=== PATIENT | male | born 1945 | race Caucasian/White ===

== ENCOUNTER 2020-03-11 13:21 | Outpatient (CLI) | payer MEDICARE, SELFPAY | END 2020-03-11 13:22 | disposition home or self-care (01) | LOC: CHSIMG 13:24 | PROVIDERS: PCP Internal Medicine; Visit Provider Specialist | DX: I05.9 Rheumatic mitral valve disease, unspecified (principal) | CPT/HCPCS: 93306 ==

== ENCOUNTER 2020-07-20 01:15 | Outpatient (CLI) | payer MEDICARE, SELFPAY ==
[2020-07-20 19:01] LABS: SARS-CoV-2 RNA PCR Negative
== END 2020-07-20 01:16 | disposition home or self-care (01) ==
LOC: ANHCOVIDDT 01:15
PROVIDERS: PCP Internal Medicine; Visit Provider Surgery
DX: Z01.812 Encounter for preprocedural laboratory examination (principal); Z20.828 Contact with and (suspected) exposure to other viral communicable diseases
CPT/HCPCS: 87635; C9803; U0003

== ENCOUNTER 2020-07-22 01:06 | Day surgery (SDC) | payer MEDICARE, SELFPAY ==
[2020-07-16 16:16] VITALS: BMI 30.9
[2020-07-22] MEDS: LACTATED RINGERS 1,000 ML 150 ML IV CONT (07:07)
[2020-07-22 07:11] VITALS: BP 134/53; PULSE 72; RESP 20; TEMP 36.5; O2SAT 98; BMI 30.3
--- NOTE | 2020-07-22 07:32 | WPDANESEPPF ---
Anes - Initial Pre Proc Eval Procedure: Operation Date: 07/22/20 08:00 Proposed Procedures p Colonoscopy - Kalyan Mason DO Date/Time: 07/22/20 07:32 Surgeon: Kalyan Mason DO Pre Op Diagnosis: Melena Patient Data Age: 74 Gender: M Height: 5 ft 10 in Weight: 95.8 kg Last Vital Signs Temp 97.7 F 07/22/20 07:11 Pulse 72 07/22/20 07:11 Resp 20 07/22/20 07:11 BP 134/53 L 07/22/20 07:11 Pulse Ox 98 07/22/20 07:11 Allergies Allergy/AdvReac Type Severity Reaction Status Date / Time No Known Allergies Allergy Verified 07/22/20 07:09 Home Medications Medication Instructions Recorded Confirmed Type albuterol sulfate [ProAir HFA] 2 puff INHALATION QID PRN 07/16/20 07/16/20 History atorvastatin 40 mg PO DAILY 07/16/20 07/16/20 History budesonide-formoterol [Symbicort] 2 puff INHALATION Q12H 07/16/20 07/16/20 History cetirizine [Zyrtec] 10 mg PO DAILY 07/16/20 07/16/20 History furosemide 20 mg PO DAILY 07/16/20 07/16/20 History ipratropium bromide 2 spray INTRANASAL BID 07/16/20 07/16/20 History rivaroxaban [Xarelto] 20 mg PO DAILY 07/16/20 07/16/20 History tamsulosin 0.4 mg PO HS 07/16/20 07/16/20 History tiotropium bromide [Spiriva with 1 cap INHALATION DAILY 07/16/20 07/16/20 History HandiHaler] Patient hx anesthesia problems: none Family hx anesthesia problems: none PMFSH Past Medical History Medical History (Updated 07/22/20 @ 07:32 by Emery Du MD) Atrial fibrillation COPD (chronic obstructive pulmonary disease) Hyperlipidemia CAILIN (obstructive sleep apnea) Pacemaker Family History Family History (Updated 04/28/16 @ 23:19 by DOCTOR UNKNOWN) Father Cerebrovascular accident Family history of diabetes mellitus in first degree relative Mother Cerebrovascular accident Family history of diabetes mellitus in first degree relative Sibling Family history of lung cancer Social History Social History Smoking packs per day: 1 Smoking cigarettes per day: 20.0 Years smoked: 30 Smoking pack-years: 30.00 Smoking status: Former smoker Tobacco type: cigarettes Smoking end date: 10/01/90 Alcohol intake: never Substance use: never Substance use type: does not use Living arrangements: with family Spiritual care concerns: No Anes - Eval Final PreProcedure Day of Procedure 07/22/20 07:32 Patient weight: obese Heart: irregular rhythm Lungs: clear to auscultation Airway: Mallampati scale class II Neurological: alert and oriented Last oral intake: >/= 8 hours ASA classification: III Emergent: no Anesthetic plan: proceed Anesthesia type and monitoring: general GIVS and standard monitoring Informed Consent: The patient's anesthetic plan and its attendant risks and benefits were discussed with the patient/family/POA. Questions were solicited and answers provided to the satisfaction of the patient/family/POA.
--- NOTE | 2020-07-22 07:56 | PM.IMHP ---
H&P: HPI History of Present Illness Date/Time: 07/22/20 07:56 Chief complaint: Melena Narrative: Ranjith Momin is a 74 year old male who presents with a positive fecal occult blood test. He denies any noticeable blood in his stool. His last colonoscopy was 4 years ago and polyps were removed at that time. He also has a previous finding of diverticulosis and internal hemorrhoids on colonoscopy. He has distant aunts and uncles that have had colon cancer but no first-degree relatives with a history of colon cancer. He denies any other changes in his bowels. Review of Systems Review of Systems: All systems reviewed & are unremarkable except as noted in HPI and below Constitutional: Constitutional: Denies chills, Denies fever(s), Denies headache(s) and Denies weight loss Eyes: Eyes: Denies change in vision ENT: Denies dizziness, Denies headache(s), Denies neck mass and Denies throat swelling Cardiovascular: Cardiovascular: Denies chest pain, Denies lightheadedness and Denies dyspnea Respiratory: Respiratory: Denies cough, Denies dyspnea and Denies wheezing Gastrointestinal: Gastrointestinal: Denies abdominal pain, Denies change in bowel habits, Denies nausea and Denies vomiting Genitourinary: Genitourinary: Denies hematuria and Denies dysuria Musculoskeletal: Musculoskeletal: Reports as per HPI Integumentary/Breasts: Skin/Breast: Reports as per HPI Neurologic: Denies dizziness and Denies headache(s) Allergic/Immunologic: Allergic/Immunologic: Denies throat swelling and Denies wheezing COUNT INCLUDES THE [facility] Past Medical History Medical History Atrial fibrillation COPD (chronic obstructive pulmonary disease) Hyperlipidemia CAILIN (obstructive sleep apnea) Pacemaker Family History Family History Father Cerebrovascular accident Family history of diabetes mellitus in first degree relative Mother Cerebrovascular accident Family history of diabetes mellitus in first degree relative Sibling Family history of lung cancer Social History Social History Smoking packs per day: 1 Smoking cigarettes per day: 20.0 Years smoked: 30 Smoking pack-years: 30.00 Smoking status: Former smoker Tobacco type: cigarettes Smoking end date: 10/01/90 Alcohol intake: never Substance use: never Substance use type: does not use Living arrangements: with family Spiritual care concerns: No Meds Home Medications and Allergies Home Medications Medication Instructions Recorded Confirmed Type albuterol sulfate [ProAir HFA] 2 puff INHALATION QID PRN 07/16/20 07/16/20 History atorvastatin 40 mg PO DAILY 07/16/20 07/16/20 History budesonide-formoterol [Symbicort] 2 puff INHALATION Q12H 07/16/20 07/16/20 History cetirizine [Zyrtec] 10 mg PO DAILY 07/16/20 07/16/20 History furosemide 20 mg PO DAILY 07/16/20 07/16/20 History ipratropium bromide 2 spray INTRANASAL BID 07/16/20 07/16/20 History rivaroxaban [Xarelto] 20 mg PO DAILY 07/16/20 07/16/20 History tamsulosin 0.4 mg PO HS 07/16/20 07/16/20 History tiotropium bromide [Spiriva with 1 cap INHALATION DAILY 07/16/20 07/16/20 History HandiHaler] Allergies Allergy/AdvReac Type Severity Reaction Status Date / Time No Known Allergies Allergy Verified 07/22/20 07:09 Vital Signs Vital Signs - 24 hr 07/22/20 07:11 Temperature 36.5 C Pulse Rate 72 Respiratory Rate 20 Blood Pressure 134/53 L Pulse Oximetry 98 Exam Const: General: no acute distress and alert Orientation/consciousness: patient oriented x3 HENMT: Head: normocephalic and atraumatic Ears: hearing grossly normal bilaterally General nose exam: Normal nares present Mouth: Yes Normal oral and palatal mucosa present Eyes: Periorbital: periorbital findings normal Sclera: sclerae normal EOM: EOMs intact bilaterally Neck: Neck: no
[2020-07-22 08:38] VITALS: BP 87/52; PULSE 70; RESP 12; O2SAT 97
[2020-07-22 08:48] VITALS: BP 100/62; PULSE 70; RESP 14; O2SAT 98
[2020-07-22 08:58] VITALS: BP 115/60; PULSE 70; RESP 16; O2SAT 99
[2020-07-22 09:08] VITALS: BP 121/65; PULSE 70; RESP 12; O2SAT 98
== END 2020-07-22 09:20 | disposition home or self-care (01) ==
PROVIDERS: PCP Internal Medicine; Visit Provider Surgery
PROC: 0DJD8ZZ Inspection of Lower Intestinal Tract, Via Natural or Artificial Opening Endoscopic (ICD-10-PCS; CPT 45378; principal; 2020-07-22 08:00)
DX: R19.5 Other fecal abnormalities (principal); Z86.010 Personal history of colon polyps; I48.20 Chronic atrial fibrillation, unspecified; J44.9 Chronic obstructive pulmonary disease, unspecified; E78.5 Hyperlipidemia, unspecified; G47.33 Obstructive sleep apnea (adult) (pediatric); Z95.0 Presence of cardiac pacemaker; Z87.891 Personal history of nicotine dependence; K57.30 Diverticulosis of large intestine without perforation or abscess without bleeding; K64.8 Other hemorrhoids; D12.2 Benign neoplasm of ascending colon; K62.1 Rectal polyp
CPT/HCPCS: 45384; 88305; J2370; J2704; J7120

== ENCOUNTER → 2020-12-23 08:52 | Outpatient (CLI) | payer MEDICARE, SELFPAY ==
--- NOTE | ~2020-12-23 | CT_ITS ---
EXAMINATION: CT sinus wo con DATE: 12/23/2020 09:27 INDICATION: Chronic sinusitis TECHNIQUE: Computed tomography (CT) of the paranasal sinuses was performed without intravenous contra st. The dose-length product was 266.74 mGy-cm. Automated exposure control and iterative reconstructio n technique were employed. COMPARISON: CT dated 05/22/2015 FINDINGS: There is chronic nasal fracture. Rightward nasal septal deviation. There is extensive mucos al thickening of the frontal, ethmoid, maxillary and sphenoid sinuses. There is mucoperiosteal reacti on of the maxillary sinuses. The ostiomeatal units are occluded by soft tissue. Mastoids are pneumati zed. IMPRESSION: 1. Pansinusitis. Reviewed, dictated and finalized at location A. IMPRESSION: 1. Pansinusitis.
== END ==
PROVIDERS: PCP Internal Medicine; Visit Provider Internal Medicine
DX: J32.4 Chronic pansinusitis (principal)
CPT/HCPCS: 70486

== ENCOUNTER → 2021-01-17 14:21 | Outpatient (CLI) | payer MEDICARE, SELFPAY ==
--- NOTE | ~2021-01-17 | CT_ITS ---
EXAMINATION: CT diagnostic chest wo con DATE: 01/17/2021 14:37 INDICATION: Emphysema. Pulmonary nodules. TECHNIQUE: Computed tomography (CT) of the chest was performed without intravenous contrast. The dose -length product was 244.60 mGy-cm. Automated exposure control and iterative reconstruction technique were employed. COMPARISON: CT dated 09/07/2017 FINDINGS: There is atherosclerosis of the aorta and coronary arteries. Cardiomegaly. No significant p leural or pericardial effusion. There are pacemaker leads present. Nonenlarged mediastinal lymph node s are likely reactive. Visualized aspects of the upper abdomen are unremarkable. There are a few smal l scattered bilateral pulmonary nodules measuring 4 mm or less, largest in the right middle lobe no f ocal airspace consolidation.. No endobronchial lesions. No pneumothorax. There is evidence of chronic granulomatous disease. No lytic or blastic lesions. Mild thoracic spondylosis. IMPRESSION: 1. Stable number and size of scattered pulmonary nodules measuring 4 mm or less, likely benign. Follo w-up low dose CT chest in 12 months recommended. Reviewed, dictated and finalized at location A. IMPRESSION: 1. Stable number and size of scattered pulmonary nodules measuring 4 mm or less , likely benign. Follow-up low dose CT chest in 12 months recommended.
== END ==
PROVIDERS: PCP Internal Medicine; Visit Provider Internal Medicine
DX: R91.1 Solitary pulmonary nodule (principal); J44.9 Chronic obstructive pulmonary disease, unspecified; M47.814 Spondylosis without myelopathy or radiculopathy, thoracic region
CPT/HCPCS: 71250

== ENCOUNTER 2021-06-03 10:37 | Outpatient (CLI) | payer MEDICARE, SELFPAY ==
--- NOTE | ~2021-06-03 | XR_ITS ---
EXAMINATION: XR chest 2V EXAM DATE: 06/03/2021 11:03 INDICATION: Cough and COPD. TECHNIQUE: Frontal and lateral projections of the chest obtained and reviewed. Comparison is made to prior examination from 01/02/2017. FINDINGS: There is a dual lead pacemaker/AICD seen with leads projecting over the expected locations of the right atrial appendage and right ventricle. The lungs are clear. There are no pleural effusi ons. The cardiomediastinal silhouette is within normal limits. There is no pneumothorax suspected. The bones and soft tissues are unremarkable. IMPRESSION: No acute cardiopulmonary findings. Reviewed, dictated and finalized at location B.
[2021-06-03 11:12] LABS: Hematocrit 47.7 % (37.0-46.0); Mean Corpuscular HGB Conc 33.5 g/dL (32.0-36.0); Mean Corpuscular Hemoglobin 30.5 pg (27.0-31.0); Mean Corpuscular Volume 90.9 fL (78.0-102.0); Mean Platelet Volume 9.2 fl (8.7-11.0); Platelet Count Result 289 K/mm3 (150-420); Red Blood Count 5.25 M/mm3 (4.70-6.10); White Blood Count 10.8 K/mm3 (4.8-10.8)
[2021-06-03 11:30] LABS: SARS-CoV-2 Ag Negative (Negative)
[2021-06-03 12:07] LABS: Band Neutrophils Percent 0 % (0-6); Basophils Percent Manual 1 % (0-1); Eosinophils Percent Manual 13 % (1-6); Lymphocytes Percent Manual 13 % (18-44); Monocytes Absolute Manual 0.97 K/mm3 (0.1-0.90); Monocytes Percent Manual 9 % (3-9); Neutrophils Absolute Manual 6.91 K/mm3 (1.3-6.7); Neutrophils Percent Manual 64 % (46-73); Total Cells Counted 100
[2021-06-03 12:08] LABS: Platelet Estimate Adequate (Adequate)
== END 2021-06-03 10:38 | disposition home or self-care (01) ==
LOC: CHSLAB 10:39
PROVIDERS: PCP Internal Medicine; Visit Provider Internal Medicine
DX: R05 Cough (principal); Z20.822 Contact with and (suspected) exposure to COVID-19
CPT/HCPCS: 36415; 71046; 85025; 85060; 87426; C9803

== ENCOUNTER 2022-06-13 15:59 | Outpatient (RCR) | payer MEDICARE, SELFPAY ==
--- NOTE | 2022-06-13 16:50 | PTOPEVAL1 ---
Assessment and note entered by Alessia Correa DPT Evaluation Information Assessment Status Evaluation Diagnosis L shoulder pain Onset 08-22-2021 Subjective Information Pt reports that on 08/22/2021, he was lifting a heavy deer onto his truck. He denies any popping, and reports pain began a few days later. Pain is at the front and lateral portion of the L shoulder . He reports pain gets worse when reaching, lifting objects. Denies N/T, denies weakness in arm. He reports that sleep has been mostly unaffected. Pt likes to garden, cut wood, and white . He reports that he is still able to do all of his tasks but might have to perform them more slowly/carefully. He denies injury to his L shoulder before all of this. Reported Pain Level Pain Score 0: Self Report Assessment PT Clinical Summary Pt presents to physical therapy with L shoulder pain, decreased strength, decreased ROM, and altered posture. He presents with signs and symptoms consistent with differential diagnosis of biceps tendon/labral pathology, impingement syndrome, or RTC pathology. His current deficits make it more challenging for him to lift and reach for objects as needed for gardening, hunting, and cutting wood. He was educated on potential pathophysiology and POC going forward and he was provided with an HEP to improve mobility, strength , and posture within his tolerance. He will benefit from skilled PT to improve the aforementioned impairments, facilitate symptom relief, and return to functional and recreational activities. Plan of Care Interventions Hot Pack/Cold Pack,Manual Therapy,Patient/ Caregiver Educati,Therapeutic Activities, Therapeutic Exercise PT Services Indicated Yes Treatment Frequency and 2x week for 10 visits Duration These treatments will address the objective and functional deficits as defined above. The patient will be advanced safely and appropriately in order for the patient to progress towards his/her prior level of function. Additional exercises will be introduced and as well as a comprehensive home exercise program upon discharge, if needed, ?to ensure carryover of functional gains achieved in the clinic. This treatment plan has been reviewed and agreement upon by the patient.
== END 2022-06-22 13:45 | disposition home or self-care (01) ==
LOC: CHSPT 15:59
PROVIDERS: PCP Internal Medicine; Visit Provider Internal Medicine
DX: M25.512 Pain in left shoulder (principal)
CPT/HCPCS: 97110; 97161

== ENCOUNTER 2022-09-03 15:24 | Emergency (ER) | payer MEDICARE, SELFPAY ==
[2022-09-03 15:26] VITALS: BP 159/93; PULSE 82; RESP 20; TEMP 37.3; O2SAT 97
[2022-09-03 16:20] LABS: Appearance Urine Clear (Clear); Bilirubin Urine Negative (Negative); Blood Urine 2+ (Negative); Glucose Urine UA Negative (Negative); Ketones Urine Negative (Negative); Leukocyte Esterase Ur Negative (Negative); Nitrate Urine Negative (Negative); Protein Urine Negative (Negative); Urobilinogen Urine 0.2 mg/dL (0.2-1.0); pH Urine 5.5 (5.0-8.0)
[2022-09-03 16:25] LABS: Add Urine Microscopic? YES; Color Urine Light Yellow (Yellow)
[2022-09-03 16:26] LABS: RBC Urine 21-50 /hpf (0-2)
--- NOTE | 2022-09-03 16:57 | ED.ABDPAIN ---
HPI - Abdominal Pain General Chief Complaint: Urogenital-Male Stated Complaint: cannot urinate Time Seen by Provider: 09/03/22 15:26 Source: patient, family and RN notes reviewed Mode of arrival: ambulatory Limitations: no limitations History of Present Illness MD elicited complaint: abdominal pain Pertinent past history: none Onset (ago): hour(s) (12) Pain Consistency: constant and other (no acute pain) Pain scale (0-10): 0 Exacerbating factors: nothing Relieving factors: nothing Associated symptoms: denies other symptoms Related Data Home Medications Medication Instructions Recorded Confirmed albuterol sulfate 90 mcg/actuation 2 puff inhalation QID PRN 07/16/20 03/14/21 aerosol inhaler (ProAir HFA) Shortness Of Breath Or Wheezing atorvastatin 40 mg tablet 40 mg PO DAILY 07/16/20 03/14/21 budesonide-formoterol HFA 160 2 puff inhalation Q12H 07/16/20 03/14/21 mcg-4.5 mcg/actuation aerosol inhaler (Symbicort) cetirizine 10 mg capsule (Zyrtec) 10 mg PO DAILY 07/16/20 03/14/21 ipratropium bromide 42 mcg (0.06 2 spray intranasal BID 07/16/20 03/14/21 %) nasal spray rivaroxaban 20 mg tablet (Xarelto) 20 mg PO DAILY 07/16/20 03/14/21 tamsulosin 0.4 mg capsule 0.4 mg PO QAM 07/16/20 03/14/21 tiotropium bromide 18 mcg capsule 1 cap inhalation BID 07/16/20 03/14/21 with inhalation device (Spiriva with HandiHaler) metoprolol tartrate 25 mg tablet 25 mg PO QPM 01/19/21 03/14/21 budesonide 0.25 mg/2 mL suspension 0.25 mg irrigation BID PRN Dyspnea 03/14/21 03/14/21 for nebulization furosemide 40 mg tablet 40 mg PO QAM 03/14/21 03/14/21 Allergies Allergy/AdvReac Type Severity Reaction Status Date / Time No Known Allergies Allergy Verified 03/14/21 10:42 Review of Systems Review of Systems: All systems reviewed & are unremarkable except as noted in HPI and below Constitutional: Constitutional: Reports no additional constitutional complaints Eyes: Eyes: Reports no additional eye complaints ENT: Reports system reviewed and no additional complaints, except as documented Cardiovascular: Cardiovascular: Reports no additional cardiovascular complaints Respiratory: Respiratory: Reports no additional respiratory complaints Gastrointestinal: Gastrointestinal: Reports no additional gastrointestinal complaints Genitourinary: Comments: unable to urinate. Musculoskeletal: Musculoskeletal: Reports no additional musculoskeletal complaints Integumentary/Breasts: Skin/Breast: Reports system reviewed and no additional complaints, except as docu Neurologic: Reports system reviewed and no additional complaints, except as documented Psychiatric: Psychiatric: Reports no additional psychiatric complaints Endocrine: Endocrine: Reports no additional endocrine complaints Hematologic/Lymphatic: Hematologic/Lymphatic: Reports no additional hematologic/lymphatic complaints Allergic/Immunologic: Allergic/Immunologic: Reports no additional allergic/immunologic complaints [facility] Past Medical History Medical History Atrial fibrillation COPD (chronic obstructive pulmonary disease) Hyperlipidemia CAILIN (obstructive sleep apnea) Pacemaker Urinary retention Family History Family History Father Cerebrovascular accident Family history of diabetes mellitus in first degree relative Mother Cerebrovascular accident Family history of diabetes mellitus in first degree relative Sibling Family history of lung cancer Social History Social History Smoking packs per day: 1 Smoking cigarettes per day: 20.0 Years smoked: 40 Smoking pack-years: 40.00 Smoking status: Former smoker Tobacco type: cigarettes Smoking end date: 03/31/05 Alcohol intake: former Alcohol use details: SOCIALLY IN PAST Substance use: never Substance use type: does not use
[2022-09-03 17:07] VITALS: BP 120/56; PULSE 61; RESP 20; TEMP 36.9; O2SAT 97
== END 2022-09-03 17:15 | disposition home or self-care (01) ==
PROVIDERS: Emergency Provider Emergency Medicine; PCP Internal Medicine
DX: R33.9 Retention of urine, unspecified (principal); Z87.891 Personal history of nicotine dependence; I48.91 Unspecified atrial fibrillation; E78.5 Hyperlipidemia, unspecified; J44.9 Chronic obstructive pulmonary disease, unspecified
CPT/HCPCS: 81001; 99283

== ENCOUNTER 2023-12-27 14:49 | Outpatient (CLI) | payer MEDICARE, SELFPAY ==
--- NOTE | ~2023-12-27 | XR_ITS ---
EXAMINATION: XR sacroiliac joints min 3V INDICATION: Bilateral hip and low back pain TECHNIQUE: AP and bilateral oblique views of the sacroiliac joints are obtained on four radiographs. COMPARISON: None available FINDINGS: Bone alignment is normal. There is no fracture. No abnormal sclerosis or erosion of the sac roiliac joints. There is severe lower lumbar spondylosis. There is mild osteoarthritis of the hips. IMPRESSION: 1. Unremarkable sacroiliac joints. Reviewed, dictated and finalized at location A.
--- NOTE | ~2023-12-27 | XR_ITS ---
EXAMINATION: XR lumbar spine 2-3V DATE: 12/27/2023 15:30 INDICATION: Low back pain TECHNIQUE: Anteroposterior and lateral views of the lumbar spine, and cone-down lateral view of the l umbosacral junction were obtained. COMPARISON: None. FINDINGS: There are 2 mm of anterolisthesis of L4 on L5. There is severe loss of intervertebral disc space height throughout the lumbar spine. The vertebral body heights are maintained. There is no frac ture. There is severe facet joint osteoarthritis at L4-5 and L5-S1. Calcified atherosclerosis is note d. Surgical clips in the right upper quadrant are likely from prior cholecystectomy. There are 13 deg molly of lumbar levoscoliosis. IMPRESSION: 1. Severe lumbar spondylosis without acute findings. Reviewed, dictated and finalized at location A.
--- NOTE | ~2023-12-27 | XR_ITS ---
XR hip BI wo pelvis 12/27/2023 15:30 Indication: Bilateral hip pain Procedure: 2 views each hip Comparison: 07/07/2019 Findings: There is mild osteoarthritis of the hips. No fracture or traumatic malalignment. There is o steitis pubis. Surrounding soft tissues are unremarkable. Impression: 1: Mild osteoarthritis of the hips. Reviewed, dictated and finalized at location L. Impression: 1: Mild osteoarthritis of the hips.
== END 2023-12-27 14:50 | disposition home or self-care (01) ==
LOC: CHSIMG 14:51
PROVIDERS: PCP Internal Medicine; Visit Provider Internal Medicine
DX: M54.50 Low back pain, unspecified (principal); M25.552 Pain in left hip; M25.551 Pain in right hip; M43.06 Spondylolysis, lumbar region; M18.0 Bilateral primary osteoarthritis of first carpometacarpal joints
CPT/HCPCS: 72100; 72202; 73521

== ENCOUNTER 2024-05-06 07:32 | Outpatient (CLI) | payer MEDICARE, SELFPAY ==
--- NOTE | ~2024-05-06 | CT_ITS ---
EXAMINATION: CTA brain carotid DATE: 05/06/2024 08:51 INDICATION: Cerebrovascular accident. Posterior neck pain. TECHNIQUE: Computed tomographic angiography (CTA) of the head was performed without and with 100 mL O mnipaque-350 intravenous contrast. CTA of the neck was performed with intravenous contrast. Automated exposure control and iterative reconstruction technique were employed. The dose-length product was 1 697.89 mGy-cm. Maximum intensity projection and volume rendered 3D-reconstructions were created by jose guadalupe katz technologist on a separate workstation. COMPARISON: Head CT 05/22/2015 FINDINGS: HEAD CTA: There is an old infarct in left temporal occipital region. There is an old infarct in right thalamus. There is no intracranial hemorrhage, acute infarction, or abnormal intracranial mass lesio n. The ventricles are normal in size. There is mucosal thickening in the paranasal sinuses with thick ening and sclerosis of the sinus [place], consistent with chronic sinusitis. There are old fracture def ormities of the nasal bones. The mastoid air cells are normal. The orbits are normal. Left vertebral artery is dominant. There is no significant stenosis of basilar artery or the posterior cerebral kristine mauricio. There is no significant stenosis of the intracranial internal carotid arteries or anterior or m iddle cerebral arteries. Left A1 anterior cerebral artery segment is absent, a normal variant. Anteri or communicating artery is normal. Posterior communicating arteries are not identified. There is no a neurysm. NECK CTA: Cardiomegaly is noted. There are coronary artery calcifications. No pericardial effusion. T here is mild mediastinal lymphadenopathy, likely reactive. There is no significant stenosis of the ve rtebral arteries. There is plaque in the proximal internal carotid arteries. There is 9% stenosis of the proximal right internal carotid artery relative to normal distal artery lumen diameter (NASCET cr iteria). There is 22% stenosis of the proximal left internal carotid artery relative to normal distal artery lumen diameter. There is severe cervical spondylosis. IMPRESSION: 1. 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 2. No aneurysm or significant intracranial arterial stenosis. 3. 9% stenosis of the proximal right internal carotid artery relative to normal distal artery lumen d iameter (NASCET criteria). 4. 22% stenosis of the proximal left internal carotid artery relative to normal distal artery lumen d iameter. 5. Chronic sinusitis. Reviewed, dictated and finalized at location A. IMPRESSION: 1. 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 2. No aneurysm or significant intracranial arterial stenosis. 3. 9% stenosis of the proximal right internal carotid artery relative to normal distal artery lumen diameter (NASCET criteria). 4. 22% stenosis of the proximal left internal carotid artery relative to normal distal artery lumen diameter. 5. Chronic sinusitis.
[2024-05-06 08:27] LABS: Estimated Glomerular Filt Rate 59
== END 2024-05-06 07:33 ==
LOC: MICIMG 07:33
PROVIDERS: PCP Internal Medicine; Visit Provider Internal Medicine
DX: I63.9 Cerebral infarction, unspecified (principal); J32.9 Chronic sinusitis, unspecified; I65.23 Occlusion and stenosis of bilateral carotid arteries
CPT/HCPCS: 70496; 70498; Q9967

== ENCOUNTER 2024-07-01 10:22 | Outpatient (CLI) | payer MEDICARE, SELFPAY ==
--- NOTE | ~2024-07-01 | US_ITS ---
EXAMINATION: US retroperitoneal comp DATE: 07/01/2024 10:46 INDICATION: Hematuria TECHNIQUE: Multiple ultrasound grayscale images of the kidneys were obtained. COMPARISON: None. FINDINGS: The right kidney measures 11.0 x 5.4 x 5.2 cm. The left kidney measures 10.6 x 5.7 x 5.2 cm. The kidn eys demonstrate normal echogenicity. There is no hydronephrosis in either kidney. No stones identifi ed. The bladder is normal. Prostatomegaly. IMPRESSION: 1. Normal kidneys without hydronephrosis. 2. Prostatomegaly. Reviewed, dictated and finalized at location A.
== END 2024-07-01 10:23 | disposition home or self-care (01) ==
LOC: MICIMG 10:23
PROVIDERS: PCP Internal Medicine; Visit Provider Internal Medicine
DX: R31.9 Hematuria, unspecified (principal); N40.0 Benign prostatic hyperplasia without lower urinary tract symptoms
CPT/HCPCS: 76770

== ENCOUNTER 2025-02-24 11:16 | Outpatient (CLI) | payer MEDICARE, SELFPAY ==
--- NOTE | ~2025-02-24 | XR_ITS ---
EXAMINATION: XR chest 2V DATE: 02/24/2025 11:40 INDICATION: Cough, COPD and congestive heart failure TECHNIQUE: PA and lateral views of the chest were obtained. COMPARISON: Chest radiograph dated 06/03/2021 FINDINGS: Hyperexpansion lungs with increased retrosternal clear space and flattening of the diaphragm consiste nt with provided history of COPD. Mild pulmonary vascular congestion with minimal increased interstit ial pattern at the bilateral lung bases consistent with minimal pulmonary edema with differential inc luding mild basilar atelectasis. No pleural effusion or pneumothorax. Mild cardiomegaly. Single lead cardiac pacemaker with lead tip near the apex of the right ventricle. There is a second disconnected right ventricular lead. Moderate thoracic and upper lumbar spondylosis. IMPRESSION: 1. Mild pulmonary vascular congestion and minimal congestive heart failure related basilar pulmonary edema versus atelectasis. 2. Hyperexpansion lungs consistent with provided history of COPD. 3. Cardiomegaly. Reviewed, dictated and finalized at location A. IMPRESSION: 1. Mild pulmonary vascular congestion and minimal congestive heart failure rela robi basilar pulmonary edema versus atelectasis. 2. Hyperexpansion lungs consistent with provided history of COPD. 3. Cardiomegaly.
--- OUTSIDE RECORDS SUMMARY | 2025-02-24 11:22 | XMS_ITS | CONTINUITY OF CARE DOCUMENT ---
Author Name tyson antoninowojciech Address Unknown Organization [facility] Address [address] [place] [address] Phone [phone] Care Team Providers Care Supply Chain Generalist Name Role Phone Lucrecia BAILEY, Chuy Unavailable KENTON FREEMAN MD Unavailable [phone] INSURANCE PROVID[employer] Payer name Policy type / Coverage type [place] [employer] PPO HMO [id number]
[2025-02-24 11:38] LABS: Hematocrit 48.1 % (37.0-46.0); Hemoglobin 15.8 g/dL (12.4-15.3); Mean Corpuscular HGB Conc 32.8 g/dL (32-36); Mean Corpuscular Hemoglobin 30.3 pg (27.0-31.0); Mean Corpuscular Volume 92.1 fL (78.0-102.0); Mean Platelet Volume 9.2 fl (8.7-11.0); Platelet Count Result 267 K/mm3 (150-420); Red Blood Count 5.22 M/mm3 (4.70-6.10); Red Cell Distribution Width 14.1 % (11.6-14.4); White Blood Count 8.1 K/mm3 (4.8-10.8)
[2025-02-24 12:15] LABS: Alanine Aminotransferase 21 U/L (6-50); Albumin Level 4.4 g/dL (3.5-5.1); Alkaline Phosphatase 100 U/L (38-126); Anion Gap 7 mmol/L (4-12); Aspartate Amino Transferase 36 U/L (17-59); Bilirubin,Total 1.9 mg/dL (0.2-1.3); Blood Urea Nitrogen 21 mg/dL (9-20); Calcium 9.7 mg/dL (8.4-10.2); Carbon Dioxide 31 mmol/L (22-30); Chloride 102 mmol/L (98-107); Estimated Glomerular Filt Rate > 60; Glucose 91 mg/dL (65-110); Osmolality Calculated 293 mOsm/kg (285-295); Potassium 3.9 mmol/L (3.4-5.0); Sodium 140 mmol/L (137-145); Total Protein 7.2 g/dL (6.3-8.2)
[2025-02-24 12:24] LABS: NT Pro B Type Natriuretic Pept 1200 pg/mL (19.9-100)
== END 2025-02-24 11:17 | disposition home or self-care (01) ==
PROVIDERS: PCP Internal Medicine; Visit Provider Internal Medicine
DX: R05.9 Cough, unspecified (principal); I50.9 Heart failure, unspecified; J44.9 Chronic obstructive pulmonary disease, unspecified; M79.89 Other specified soft tissue disorders; I51.7 Cardiomegaly; R91.8 Other nonspecific abnormal finding of lung field
CPT/HCPCS: 36415; 71046; 80053; 83880; 85027

== ENCOUNTER 2025-05-14 10:56 | Outpatient (CLI) | payer MEDICARE, SELFPAY ==
--- NOTE | ~2025-05-14 | XR_ITS ---
CHEST RADIOGRAPH, PA AND LATERAL CLINICAL HISTORY: Pleural Effusion, CHF . COMPARISON: 02/1704/19/2025 TECHNIQUE: PA and lateral views of the chest. FINDINGS The left mid lung is partially obscured due to pacemaker generator. Wires project over the right atrium and right ventricle. The remainder of the cardiomediastinal silhouette is otherwise unremarkable. Blunting of the left costophrenic sulcus suggesting a small left-sided pleural effusion, confirmed on lateral view. Increased interstitial markings are identified bilaterally, findings suggesting mild pulmonary vascul ar congestion. The remainder of the lungs are clear. IMPRESSION: Mild pulmonary vascular congestion with a small left-sided pleural effusion. Reviewed, dictated and finalized at location A.
--- OUTSIDE RECORDS SUMMARY | 2025-05-14 11:17 | XMS_ITS | Encounter Summary ---
Author Organization [facility] Address [facility] [place] [address] Care Team Providers Care Car Bracer Name Role Phone Feliz Mai MD Primary Care Provider [phone] Cornelius Guevara MD Unavailable [phone] Vaibhav Burgess MD Unavailable [phone] Krish Contreras MD Unavailable [phone] Radha Holliday ANP-BC Unavailable [phone] Chase Rubio MD Unavailable [phone] Raven Wallace PA-C Unavailable [phone] Encounter Details Date Type Department Care Team ([facility] Contact Info) Description 11/15/2017 Abstract [facility] [address] [place] [address] Abstract, Doc [facility] Social History Tobacco Use Types Packs/Day Years Used Date Smoking Tobacco: Former Smokeless Tobacco: Current Chew Alcohol Use Standard Drinks/Week Comments No 0 (1 standard drink = 0.6 oz pur e alcohol) Sex and Gender Information Value Date Recorded Sex Assigned at Male 12/01/2024 10:06 AM SALES AND OPERATIONS TRAINEE Legal Sex Male 1:26 AM CDT Gender Identity Not on file Sexual Orientation Not on file 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 ld [address] [place] [address] Chase Rubio MD [address] [place] [address] 01/06/2026 10:00 AM CDT Office Visit [facility] [place] [address] [address] Raven Wallace PA-C [address] [place] [address] 01/06/2026 10:00 AM CDT Allied Health/Nurse Visit [place] [address] [place] [address] Chase Rubio MD [address] [place] [address] documented as of this encounter Procedures Procedure Name Priority Date/Time Associated Diagnosis Comments AST/SGOT Routine 11/05/2017 terminal manager current use of amiodarone Atrial fibrillation, permanent THYROID STIM HORMONE TSH Routine 11/05/2017 residential current use of amiodarone Atrial fibrillation, permanent ALT/SGPT Routine 11/05/2017 residential current use of amiodarone Atrial fibrillation, permanent documented in this encounter Results * TSH (11/05/2017) Pathologist [facility] TSH 1.78 11/05/2017 Yordan Stallings MD LABORATORY Final Result * ALT/SGPT (11/05/2017) ALT 23 11/05/2017 us Yordan Stallings MD LABORATORY Final Result * AST/SGOT (11/05/2017) AST 23 11/05/2017 us Yordan Stallings MD LABORATORY Final Result documented in this encounter Visit Diagnoses Diagnosis terminal manager current use of amiodarone Atrial fibrillation, permanent (CMS/HCC HHS/HCC) Atrial fibrillation documented in this encounter Additional Health Concerns Infection Onset Date Last Indicated Resolved Time COVID-19 Rule Out 05/24/2020 05/24/2020 05/25/2020 10:00 PM CDT COVID-19 Rule Out 06/05/2020 06/05/2020 06/06/2020 9:06 PM CDT COVID-19 Rule Out 02/12/2021 02/12/2021 02/12/2021 7:10 PM CDT documented as of this encounter Care Teams Car Bracer Relationship Specialty Start Date End Date Feliz Mai MD [address] [place] [address] PCP - General INTERNAL MEDICINE 04/13/16 Cornelius Guevara MD [address] [place] [address] [place] Pit Shovel Operator CARDIOVASCULAR DISEASE 09/12/17 01/22/24 Vaibhav Burgess MD [address] [place] [address] EP Pit Shovel Operator CLINICAL CARDIAC ELECTROPHYSIOLOGY 11/14/19 01/22/24 Krish Contreras MD [address] [place] [address] INTERVENTIONAL CARDIOLOGY 01/23/2412/05 Radha Holliday ANP- [address] [place] [address] Nurse Practitioner NURSE PRACTITIONER ADULT HEALTH 01/23/24 Chase Rubio MD [address] [place] [address] Consulting Physician CLINICAL CARDIAC ELECTROPHYSIOLOGY 12/02/24 Raven Wallace PA-C [address] [place] [address] Referring Physician PHYSICIAN SPINNER HYDRAULIC 12/02/24 documented as of this encounter
--- OUTSIDE RECORDS SUMMARY | 2025-05-14 11:17 | XMS_ITS | Encounter Summary ---
Author Organization [facility] Address [address] [place] [address] Care Team Providers Care Head Buyer Tobacco Name Role Phone Feliz Mai MD Primary Care Provider [phone] Cornelius Guevara MD Unavailable [phone] Vaibhav Burgess MD Unavailable [phone] Krish Contreras MD Unavailable [phone] Radha Holliday ANP-BC Unavailable [phone] Chase Rubio MD Unavailable [phone] Raven Wallace PA-C Unavailable [phone] Encounter Details Date Type Department Care Team (Late st Contact Info) Description 08/08/2021 Abstract [facility] [address] [place] [address] Cornelius Guevara MD [address] [place] [address] [phone] Social History Tobacco Use Types Packs/Day Years Used Date Smoking Tobacco: Former Cigarettes Q uit: 04/13/1990 Smokeless Tobacco: Current Chew Alcohol Use Standard Drinks/Week Comments No 0 (1 standard drink = 0.6 oz pur e alcohol) Sex and Gender Information Value Date Recorded Sex Assigned at Male 12/01/2024 10:06 AM BORING MILL OPERATOR Legal Sex Male 1:26 AM CDT Gender Identity Not on file Sexual Orientation Not on file 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 Job End Date 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 Not on file Not on file No t on file Not on file Not on file Not on file Not on file documented as of this encounter Plan of Treatment Upcoming Encounters Date Type Department Care Team (Late st Contact Info) Description 08/06/2025 3:15 AM BORING MILL OPERATOR Allied Health/Nurse Visit [facility] [address] [place] [address] Chase Rubio MD [address] [place] [address] 01/06/2026 10:00 AM CDT Office Visit [facility] [address] [place] [address] Raven Wallace PA-C [address] [place], [place] [address] 01/06/2026 10:00 AM CDT Allied Health/Nurse Visit [facility] [place] [address] [place] [address] Chase Rubio MD [address] [place] [address] documented as of this encounter Procedures Procedure Name Priority Date/Time Associated Diagnosis Comments BASIC METABOLIC PANEL Routine 07/05/2021 documented in this encounter Results * (ABNORMAL) BASIC METABOLIC PANEL (07/05/2021) SODIUM S/P/B 140 135 - 146 POTASSIUM S/P/B 4.4 3.5 - 5.3 CO2 30 20 - 32 CHLORIDE S/P/B 105 98 - 110 GLUCOSE 85 65 - 99 mg/dL CALCIUM S/P/B 9.2 8.6 - 10.3 BUN 22 7 - 25 CREATININE S/P/B 1.34(A) 0.7 - 1.18 EGFR AFR. AMER. 60 <=90 EGFR NON-AFR. AMER. 52 <=90 07/05/2021 us Doc [facility] Abstract LABORATORY Final Result documented in this encounter Visit Diagnoses Not on filedocumented in this encounter Care Teams Head Buyer Tobacco Relationship Specialty Start Date End Date Feliz Mai MD [address] [place] [phone] PCP - General INTERNAL MEDICINE 04/13/16 Cornelius Guevara MD [address] [place], [place] [phone] Energy Production Or Plant Engineer CARDIOVASCULAR DISEASE 09/12/17 01/22/24 Vaibhav Burgess MD [address] [place], [place] [phone] EP Production Or Plant Engineer CLINICAL CARDIAC ELECTROPHYSIOLOGY 11/14/19 01/22/24 Krish Contreras MD [address] [place] [phone] INTERVENTIONAL CARDIOLOGY 01/23/2412/05 Radha Holliday, [facility]- [address] [place] [address] Nurse Practitioner NURSE PRACTITIONER ADULT HEALTH 01/23/24 Chase Rubio MD [address] [place], [place] [phone] Consulting Physician CLINICAL CARDIAC ELECTROPHYSIOLOGY 12/02/24 Raven Wallace PA-C [address] [place] [address] Referring Physician PHYSICIAN HANDHOLE MACHINE OPERATOR 12/02/24 documented as of this encounter
--- OUTSIDE RECORDS SUMMARY | 2025-05-14 11:17 | XMS_ITS | Encounter Summary ---
Author Organization [facility] Address [address] [place] [address] Care Team Providers Care Ring Sorter Name Role Phone Feliz Mai MD Primary Care Provider [phone] Cornelius Guevara MD Unavailable [phone] Vaibhav Burgess MD Unavailable [phone] Krish Contreras MD Unavailable [phone] Radha Holliday ANP-BC Unavailable [phone] Chase Rubio MD Unavailable [phone] Raven Wallace PA-C Unavailable [phone] Encounter Details Date Type Department Care Team (Late st Contact Info) Description 06/17/2021 Abstract [facility] [address] [place] [address] Cornelius Guevara MD [address] [place] [address] [phone] Social History Tobacco Use Types Packs/Day Years Used Date Smoking Tobacco: Former Cigarettes Q uit: 04/13/1990 Smokeless Tobacco: Current Chew Alcohol Use Standard Drinks/Week Comments No 0 (1 standard drink = 0.6 oz pur e alcohol) Sex and Gender Information Value Date Recorded Sex Assigned at Male 12/01/2024 10:06 AM POWER LINE INSTALLER AND REPAIRER Legal Sex Male 1:26 AM CDT Gender Identity Not on file Sexual Orientation Not on file 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 No / Unsure 05/27/2021 9:02 AM CDT documented as of this encounter Plan of Treatment Upcoming Encounters Date Type Department Care Team (Late st Contact Info) Description 08/06/2025 3:15 AM POWER LINE INSTALLER AND REPAIRER Allied Health/Nurse Visit [facility] [address] [place] [address] Chase Rubio MD [address] [place], [place] [address] 01/06/2026 10:00 AM CDT Office Visit [facility] [place] [address] [place] [address] Raven Wallace PA-C [address] [place], [place] [address] 01/06/2026 10:00 AM CDT Allied Health/Nurse Visit [facility] [place] [address] [place] [address] Chase Rubio MD [address] [place] [address] documented as of this encounter Procedures Procedure Name Priority Date/Time Associated Diagnosis Comments CMP (ABSTRACTED LAB) Routine 04/08/2021 TSH (OUTSIDE LAB) Routine 04/08/2021 CBC (OUTSIDE LAB) Routine 04/08/2021 LIPID PANEL Routine 04/08/2021 THYROXINE, FREE (FT4) Routine 04/08/2021 documented in this encounter Results * CBC (OUTSIDE LAB) (04/08/2021) [facility] WBC 9.5 3.8 - 10.8 HGB 16.6 13.2 - 17.1 HCT 49.8 38.5 - 50.0 PLT 316 140 - 400 RBC 5.53 4.20 - 5.80 04/08/2021 us Doc [facility] Abstract LAB-OUTSIDE/ABSTRACTED Final Result * THYROXINE, FREE (FT4) (04/08/2021) [facility] FREE T4 1.3 0.8 - 1.8 04/08/2021 us Doc [facility] Abstract LABORATORY Final Result * TSH (OUTSIDE LAB) (04/08/2021) [facility] TSH 3.64 0.40 - 4.50 04/08/2021 us Doc [facility] Abstract LAB-OUTSIDE/ABSTRACTED Final Result * (ABNORMAL) CMP (ABSTRACTED LAB) (04/08/2021) [facility] SODIUM S/P/B 141 135 - 146 POTASSIUM S/P/B 4.4 3.5 - 5.3 CHLORIDE S/P/B 100 98 - 110 CO2 28 20 - 32 BUN 26 7 - 25 CREATININE S/P/B 1.41(A) 0.7 - 1.18 EGFR AFR. AMER. 56 <=90 EGFR NON-AFR. AMER. 49 <=90 CALCIUM S/P/B 9.5 8.6 - 10.3 GLUCOSE 89 65 - 99 mg/dL TOTAL PROTEIN S/P/B 6.3 6.1 - 8.1 ALBUMIN S/P/B 4.0 3.6 - 5.1 AST 16 10 - 35 ALT 9 9 - 46 ALKALINE PHOSPHATASE S/P/B 109 35 - 144 BILIRUBIN TOTAL S/P/B 1.5 0.2 - 1.2 04/08/2021 us Doc [facility] Abstract LAB-OUTSIDE/ABSTRACTED Final Result * LIPID PANEL (04/08/2021) CHOLESTEROL 180 <200 HDL 44 >=40 TRIGLYCERIDES 87 <150 NON HDL CHOLESTEROL 136 <130 CHOL/HDL RATIO 4.1 <5.0 LDL (CALCULATED) 117 04/08/2021 us Doc [facility] Abstract LABORATORY Final Result documented in this encounter Visit Diagnoses Not on filedocumented in this encounter Care Teams Ring Sorter Relationship Specialty Start Date End Date Feliz Mai MD [address] [place] [address] PCP - General INTERNAL MEDICINE 04/13/16 Cornelius Guevara MD [address] [place] [address] [place] Well Head Pumper CARDIOVASCULAR DISEASE 09/12/17 01/22/24 Vaibhav Burgess MD [address] [place] [address] EP Well Head Pumper CLINICAL CARDIAC ELECTROPHYSIOLOGY 11/14/19 01/22/24 Krish Contreras MD [address] [place] [address] INTERVENTIONAL CARDIOLOGY 01/23/2412/05 Radha Holliday, [facility]- [address] [place] [address] Nurse Practitioner NURSE PRACTITIONER ADULT HEALTH 01/23/24 Chase Rubio MD [address] [place] [address] Consulting Physician CLINICAL CARDIAC ELECTROPHYSIOLOGY 12/02/24 Raven Wallace PA-C [address] [place] [address] Referring Physician PHYSICIAN PROTOTYPE ENGINEER 12/02/24 documented as of this encounter
--- OUTSIDE RECORDS SUMMARY | 2025-05-14 11:17 | XMS_ITS | Encounter Summary ---
Author Organization [facility] Address [address] [place] [address] Care Team Providers Care Directory Compiler Name Role Phone Feliz Mai MD Primary Care Provider [phone] Cornelius Guevara MD Unavailable [phone] Vaibhav Burgess MD Unavailable [phone] Krish Contreras MD Unavailable [phone] Radha Holliday ANP-BC Unavailable [phone] Chase Rubio MD Unavailable [phone] Raven Wallace PA-C Unavailable [phone] Encounter Details Date Type Department Care Team (Late st Contact Info) Description 11/24/2021 Abstract [facility] [address] [place] [address] Cornelius Guevara MD [address] [place] [address] [phone] Social History Tobacco Use Types Packs/Day Years Used Date Smoking Tobacco: Former Cigarettes Q uit: 04/13/1990 Smokeless Tobacco: Current Chew Alcohol Use Standard Drinks/Week Comments No 0 (1 standard drink = 0.6 oz pur e alcohol) Sex and Gender Information Value Date Recorded Sex Assigned at Male 12/01/2024 10:06 AM SENIOR APPLICATION SOFTWARE ENGINEER Legal Sex Male 1:26 AM CDT Gender Identity Not on file Sexual Orientation Not on file 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 Job End 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 Not on file Not on file No t on file Not on file Not on file Not on file Not on file documented as of this encounter Plan of Treatment Upcoming Encounters Date Type Department Care Team (Late st Contact Info) Description 08/06/2025 3:15 AM SENIOR APPLICATION SOFTWARE ENGINEER Allied Health/Nurse Visit [facility] [address] [place] [address] Chase Rubio MD [address] [place] [address] 01/06/2026 10:00 AM CDT Office Visit [facility] [address] [place] [address] Raven Wallace PA-C [address] [place], [place] [address] 01/06/2026 10:00 AM CDT Allied Health/Nurse Visit [facility] [place] [address] [place] [address] Chase Rubio MD [address] [place] [address] documented as of this encounter Procedures Procedure Name Priority Date/Time Associated Diagnosis Comments CMP (ABSTRACTED LAB) Routine 11/10/2021 LIPID PANEL Routine 11/10/2021 documented in this encounter Results * (ABNORMAL) CMP (ABSTRACTED LAB) (11/10/2021) SODIUM S/P/B 139 135 - 146 POTASSIUM S/P/B 4.4 3.5 - 5.3 CHLORIDE S/P/B 100 98 - 110 CO2 30 20 - 32 BUN 21 7 - 25 CREATININE S/P/B 1.25(A) 0.7 - 1.18 EGFR AFR. AMER. 65 <=90 EGFR NON-AFR. AMER. 56 <=90 CALCIUM S/P/B 10.0 8.6 - 10.3 GLUCOSE 89 65 - 99 mg/dL TOTAL PROTEIN S/P/B 6.6 6.1 - 8.1 ALBUMIN S/P/B 4.3 3.6 - 5.1 AST 23 10 - 35 ALT 16 9 - 46 ALKALINE PHOSPHATASE S/P/B 97 35 - 144 BILIRUBIN TOTAL S/P/B 1.8 0.2 - 1.2 11/10/2021 us Doc [facility] Abstract LAB-OUTSIDE/ABSTRACTED Final Result * LIPID PANEL (11/10/2021) CHOLESTEROL 126 <200 HDL 52 >=40 TRIGLYCERIDES 74 <150 NON HDL CHOLESTEROL 74 <130 CHOL/HDL RATIO 2.4 <5.0 LDL (CALCULATED) 59 <100 11/10/2021 us Doc [facility] Abstract LABORATORY Final Result documented in this encounter Visit Diagnoses Not on filedocumented in this encounter Care Teams Directory Compiler Relationship Specialty Start Date End Date Feliz Mai MD [address] [place] [address] PCP - General INTERNAL MEDICINE 04/13/16 Cornelius Guevara MD [address] [place] [address] [place] Hydro Generation Supervisor CARDIOVASCULAR DISEASE 09/12/17 01/22/24 Vaibhav Burgess MD [address] [place] [address] EP Hydro Generation Supervisor CLINICAL CARDIAC ELECTROPHYSIOLOGY 11/14/19 01/22/24 Krish Contreras MD [address] [place] [address] INTERVENTIONAL CARDIOLOGY 01/23/2412/05 Radha Holliday, [facility] [address] [place] [address] Nurse Practitioner NURSE PRACTITIONER ADULT HEALTH 01/23/24 Chase Rubio MD [address] [place] [address] Consulting Physician CLINICAL CARDIAC ELECTROPHYSIOLOGY 12/02/24 Raven Wallace PA-C [address] [place], [place] [address] Referring Physician PHYSICIAN ADVERTISING STRATEGIST 12/02/24 documented as of this encounter
--- OUTSIDE RECORDS SUMMARY | 2025-05-14 11:17 | XMS_ITS | Encounter Summary ---
Author Organization [facility] Address [address] [place] [address] Care Team Providers Care Java Xml Developer Name Role Phone Feliz Mai MD Primary Care Provider [phone] Cornelius Guevara MD Unavailable [phone] Vaibhav Burgess MD Unavailable [phone] Krish Contreras MD Unavailable [phone] Radha Holliday ANP-BC Unavailable [phone] Chase Rubio MD Unavailable [phone] Raven Wallace PA-C Unavailable [phone] Encounter Details Date Type Department Care Team (Late st Contact Info) Description 04/06/2020 Abstract [facility] [address] [place] [address] Cornelius Guevara MD [address] [place] [address] [phone] Social History Tobacco Use Types Packs/Day Years Used Date Smoking Tobacco: Former Smokeless Tobacco: Current Chew Alcohol Use Standard Drinks/Week Comments No 0 (1 standard drink = 0.6 oz pur e alcohol) Sex and Gender Information Value Date Recorded Sex Assigned at Male 12/01/2024 10:06 AM ARTILLERY SPECIALIST Legal Sex Male 1:26 AM CDT Gender Identity Not on file Sexual Orientation Not on file 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 Not on file Not on file No t on file Not on file Not on file Not on file Not on file documented as of this encounter Plan of Treatment Upcoming Encounters Date Type Department Care Team (Late st Contact Info) Description 08/06/2025 3:15 AM ARTILLERY SPECIALIST Allied Health/Nurse Visit [facility] [address] [place] [address] Chase Rubio MD [address] [place] [address] 01/06/2026 10:00 AM CDT Office Visit [facility] [place] [address] [place] [address] Raven Wallace PA-C [address] [place], [place] [address] 01/06/2026 10:00 AM CDT Allied Health/Nurse Visit [facility] [place] [address] [place] [address] Chase Rubio MD [address] [place], [place] [address] documented as of this encounter Visit Diagnoses Not on filedocumented in this encounter Additional Health Concerns Infection Onset Date Last Indicated Resolved Time COVID-19 Rule Out 05/24/2020 05/24/2020 05/25/2020 10:00 PM CDT COVID-19 Rule Out 06/05/2020 06/05/2020 06/06/2020 9:06 PM CDT COVID-19 Rule Out 02/12/2021 02/12/2021 02/12/2021 7:10 PM CDT documented as of this encounter Care Teams Java Xml Developer Relationship Specialty Start Date End Date Feliz Mai MD [address] [place] [address] PCP - General INTERNAL MEDICINE 04/13/16 Cornelius Guevara MD [address] [place] [address] [place] Negative Cutter CARDIOVASCULAR DISEASE 09/12/17 01/22/24 Vaibhav Burgess MD [address] [place] [address] EP Negative Cutter CLINICAL CARDIAC ELECTROPHYSIOLOGY 11/14/19 01/22/24 Krish Contreras MD [address] [place] [address] INTERVENTIONAL CARDIOLOGY 01/23/2412/05 Radha Holliday, [facility] [address] [place] [address] Nurse Practitioner NURSE PRACTITIONER ADULT HEALTH 01/23/24 Chase Rubio MD [address] [place] [address] Consulting Physician CLINICAL CARDIAC ELECTROPHYSIOLOGY 12/02/24 Raven Wallace PA-C [address] [place] [phone] Referring Physician PHYSICIAN NAIL ASSEMBLY MACHINE OPERATOR 12/02/24 documented as of this encounter
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
--- OUTSIDE RECORDS SUMMARY | 2025-05-14 11:17 | XMS_ITS | Encounter Summary ---
Author Organization [facility] Address [address] [place] [address] Care Team Providers Care Delivery Agent Name Role Phone Feliz Mai MD Primary Care Provider [phone] Cornelius Guevara MD Unavailable [phone] Vaibhav Burgess MD Unavailable [phone] Krish Contreras MD Unavailable [phone] Radha Holliday ANP-BC Unavailable [phone] Chase Rubio MD Unavailable [phone] Raven Wallace PA-C Unavailable [phone] Encounter Details Date Type Department Care Team (Late st Contact Info) Description 08/03/2021 Abstract [facility] [address] [place] [address] Cornelius Guevara MD [address] [place] [address] [phone] Social History Tobacco Use Types Packs/Day Years Used Date Smoking Tobacco: Former Cigarettes Q uit: 04/13/1990 Smokeless Tobacco: Current Chew Alcohol Use Standard Drinks/Week Comments No 0 (1 standard drink = 0.6 oz pur e alcohol) Sex and Gender Information Value Date Recorded Sex Assigned at Male 12/01/2024 10:06 AM MANAGER VIDEO Legal Sex Male 1:26 AM CDT Gender Identity Not on file Sexual Orientation Not on file 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 Job End Date 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 Not on file Not on file No t on file Not on file Not on file Not on file Not on file documented as of this encounter Plan of Treatment Upcoming Encounters Date Type Department Care Team (Late st Contact Info) Description 08/06/2025 3:15 AM MANAGER VIDEO Allied Health/Nurse Visit [facility] [address] [place] [address] Chase Rubio MD [address] [place] [address] 01/06/2026 10:00 AM CDT Office Visit [facility] [place] [address] [place] [address] Raven Wallace PA-C [address] [place], [place] [address] 01/06/2026 10:00 AM CDT Allied Health/Nurse Visit [facility] [place] [address] [place] [address] Chase Rubio MD [address] [place] [address] documented as of this encounter Procedures Procedure Name Priority Date/Time Associated Diagnosis Comments CMP (ABSTRACTED LAB) Routine 08/01/2021 LIPID PANEL Routine 08/01/2021 documented in this encounter Results * CMP (ABSTRACTED LAB) (08/01/2021) SODIUM S/P/B 140 POTASSIUM S/P/B 4.5 CHLORIDE S/P/B 100 CO2 31 BUN 23 CREATININE S/P/B 1.28 0.7 - 1.3 EGFR AFR. AMER. 63 <=90 EGFR NON-AFR. AMER. 54 <=90 CALCIUM S/P/B 9.9 GLUCOSE 96 mg/dL TOTAL PROTEIN S/P/B 6.5 ALBUMIN S/P/B 4.2 3.5 - 5.0 AST 17 ALT 14 ALKALINE PHOSPHATASE S/P/B 113 BILIRUBIN TOTAL S/P/B 1.6 08/01/2021 us Feliz Mai MD LAB-OUTSIDE/ABSTRACTED Final Result * LIPID PANEL (08/01/2021) CHOLESTEROL 212 <200 HDL 56 >=40 TRIGLYCERIDES 101 <150 NON HDL CHOLESTEROL 156 <130 CHOL/HDL RATIO 3.8 <5.0 LDL (CALCULATED) 136 08/01/2021 us Feliz Mai MD LABORATORY Final Result documented in this encounter Visit Diagnoses Not on filedocumented in this encounter Care Teams Delivery Agent Relationship Specialty Start Date End Date Feliz Mai MD [address] [place] [address] PCP - General INTERNAL MEDICINE 04/13/16 Cornelius Guevara MD [address] [place] [address] [place] Manager Billing CARDIOVASCULAR DISEASE 09/12/17 01/22/24 Vaibhav Burgess MD [address] [place] [address] EP Manager Billing CLINICAL CARDIAC ELECTROPHYSIOLOGY 11/14/19 01/22/24 Krish Contreras MD [address] [place] [address] INTERVENTIONAL CARDIOLOGY 01/23/2412/05 Radha Holliday, [facility]- [address] [place] [address] Nurse Practitioner NURSE PRACTITIONER ADULT HEALTH 01/23/24 Chase Rubio MD [address] [place] [address] Consulting Physician CLINICAL CARDIAC ELECTROPHYSIOLOGY 12/02/24 Raven Wallace PA-C [address] [place] [address] Referring Physician PHYSICIAN CHIEF COUNSEL 12/02/24 documented as of this encounter
== END 2025-05-14 10:57 | disposition home or self-care (01) ==
PROVIDERS: PCP Internal Medicine; Visit Provider Internal Medicine
DX: I50.9 Heart failure, unspecified (principal); J90 Pleural effusion, not elsewhere classified
CPT/HCPCS: 71046

== ENCOUNTER 2025-05-18 18:07 | Emergency (ER) | payer MEDICARE, SELFPAY ==
--- NOTE | ~2025-05-18 | XR_ITS ---
XR chest 2V 05/18/2025 18:56 Indication: Cough and fever Procedure: 2 views chest Comparison: 05/14/2025 Findings: Cardiomegaly. There is atherosclerosis and ectasia of the aorta. Pacemaker leads are stable . No focal air space disease, pulmonary edema, pleural effusion or suspected pneumothorax. Impression: 1: No acute cardiopulmonary disease. Reviewed, dictated and finalized at location A. Impression: 1: No acute cardiopulmonary disease.
--- OUTSIDE RECORDS SUMMARY | 2025-05-18 18:10 | XMS_ITS | Clinical Summary ---
Author Organization [facility] Address [address] [place] [address] Care Team Providers Care Partner Cco Name Role Phone Kenton Freeman MD Primary Care Provider [phone] Radha Holliday ANP-BC Unavailable [phone] Chase Rubio [...] Sleep apnea 09/15/2017 Mitral valve disease 09/15/2017 lubricating specialist current use of anticoagulant 7 SVT (supraventricular tachycardia) ([facility]) Cardiac pacemaker in situ 04/13/2016 CVA (cerebral vascular accident) ([facility]) 04/13/2016 Ventricular tachycardia ([facility]) 2015 Atrial fibrillation, permanent ([facility]) 04/13/2016 COPD (chronic obstructive pu lmonary disease) ([facility]) Resolved Problems Problem Noted Date Diagnosed Date Resolved Date detention current use of amiodarone 10/23/2016 08/14/2024 Encounters Date Type Department Care Team Description 05/01/2025 2:10 PM CDT - 05/01/2025 11:59 PM CDT Hospital Encounter [facility] [address] [place] [address] Kenton Freeman MD Discharge Disposition: Home or Self Care (Routine Discharge) 05/01/2025 Travel 04/28/2025 1:15 AM CDT Allied Health/Nurse Visit [facility] [address] [place] [address] Chase Rubio MD 04/09/2025 3:01 AM CDT - 04/09/2025 4:37 AM CDT Emergency [facility] [address] [facility] [place] [address] Broderick Torres MD Fall; Laceration Discharge Disposition: Home or Self Care (Routine Discharge) 04/09/2025 Travel 04/07/2025 11:55 AM CDT - 04/07/2025 11:59 PM CDT Hospital Encounter [facility] [address] 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 Not on file Not on file [...] st Contact Info) Description 08/06/2025 3:15 AM DUCK FARMER Allied Health/Nurse Visit [facility] [address] [place] [address] Chase Rubio MD [address] [place], [place] [address] 01/06/2026 10:00 AM CDT Office Visit [facility] [address] [place] [address] Raven Wallace PA-C [address] [place], [place] 7[address] [phone] 01/06/2026 10:00 AM CDT Allied Health/Nurse Visit [place] [address] [place] [address] Chase Rubio MD [address] [place], [place] 4[address] [phone] Health Maintenance Due Date Last Done Comments [...] this topic Medical Devices Implanted Type Area Breastfeeding Peer Counselor Device Identifier Shelf Expiration Date Model / Serial / Lot Medtronic Rv-Lead-09/15 Implanted:Qty : 1 on 09/15/2015 by Vaibhav Burgess MD Lead Implant [employer] CARDIAC RHYTHM AND HEART FAILURE - DIV M [id number] / [id number] / Medtronic Susie Mri Sr-02/15/2021 Implanted:Qty : 1 on 02/15/2021 by Vaibhav Burgess MD Pacemaker Left: Chest Wall [employer] CARDIAC RHYTHM AND HEART FAILURE - DIV M 06/28/2022 [id number] / [id number] / Explanted Type Area Breastfeeding Peer Counselor Device Identifier Shelf Expiration Date Model / Serial / Lot Medtronic Accolade [id number]-[id number] -09/15/2015 Implanted:Qty: 1 on 09/15/2015 by Vaibhav Burgess MD Explanted:Qty: 1 on 02/15/2021 by Vaibhav Burgess MD Pacemaker [employer] CARDIAC RHYTHM AND HEART FAILURE - DIV M [id number] / [id number] / Procedures Procedure Name Priority Date/Time Associated [...] 1:58 PM Narrative 05/03/2025 2:00 PM CDT [address] [place] [address] Examination: Right ribs. Exam time: 1418 hours. [...] Procedure Note Nick Hoskins MD - 05/03/[address] [place] [address] Examination: Right ribs. Exam time: 1418 hours. [...] 2:56 PM Narrative 05/01/2025 4:08 PM CDT [address] [place] [address] [place] [address] Examination: Chest x-ray 2 view Exam time: [...] Procedure Note Ranulfo Robertson DO - 05/01/[address] [place] [address] [place] [address] Examination: Chest x-ray 2 view Exam time: [...] 2:01 PM Narrative 05/03/2025 2:04 PM CDT [address] [place] [address] Examination: Cervical spine. Exam time: 1415 hours. [...] Procedure Note Nick Hoskins MD - 05/03/[address] [place] [address] Examination: Cervical spine. Exam time: 1415 hours. [...] 4:06 AM Narrative 04/09/2025 4:09 AM CDT [address] [place] [address] EXAMINATION: CT THORACIC SPINE WITHOUT CONTRAST INDICATION: [...] Probable cardiomegaly. Small hiatal hernia. Procedure Note Narinder Marrero MD - 04/09/[address] [place] [address] EXAMINATION: CT THORACIC SPINE WITHOUT CONTRAST INDICATION: [...] 3:53 AM Narrative 04/09/2025 3:55 AM CDT [address] [place] [address] EXAMINATION: CT HEAD WITHOUT CONTRAST INDICATION: Trauma. [...] Procedure Note Narinder Marrero MD - 04/09/2025 [place] [address] [facility] [place] [address] EXAMINATION: CT HEAD WITHOUT CONTRAST INDICATION: Trauma. [...] cells and maxillary sinuses. The calvariumis intact. [place] can be seen along the posterior right [...] 4:04 AM Narrative 04/09/2025 4:05 AM CDT [address] [place] [address] EXAMINATION: CT CERVICAL SPINE WITHOUT CONTRAST INDICATION: [...] Procedure Note Narinder Marrero MD - 04/09/[address] [place] [address] EXAMINATION: CT CERVICAL SPINE WITHOUT CONTRAST INDICATION: [...] Payer ID:[id number] (NAIC) Type:Not on file Address: [place] [id number] [employer] Advance Directives Documents on File Type Date Recorded Patient Associate Teacher Expl anation Advance Directives and Living Will 10/03/2017 SHORT FORM POWER OF RUBBER BELT SPLICER Advance Directives and Living Will 10/03/2017 SHORT FORM POWER OF RUBBER BELT SPLICER Advance Directives and Living Will 04/13/2016 SHORT FORM POWER OF RUBBER BELT SPLICER Advance Directives and Living Will 04/13/2016 SHORT FORM POWER OF RUBBER BELT SPLICER Advance Directives and Living Will 09/15/2015 SHORT FORM POWER OF RUBBER BELT SPLICER Advance Directives and Living Will 09/15/2015 SHORT FORM POWER OF RUBBER BELT SPLICER Advance Directives and Living Will 05/22/2015 SHORT FORM POWER OF RUBBER BELT SPLICER Advance Directives and Living Will 05/22/2015 SHORT FORM POWER OF RUBBER BELT SPLICER Care Teams Partner Cco Relationship Specialty Start Date End Date Kenton Freeman MD [address] [place] [address] PCP - General INTERNAL MEDICINE 04/13/16 Radha Holliday ANP- [address] [place] [address] Nurse Practitioner NURSE PRACTITIONER ADULT HEALTH 01/23/24 Chase Rubio MD [address] [place] [address] Consulting Physician CLINICAL CARDIAC ELECTROPHYSIOLOGY 12/02/24 Raven Wallace PA-C [address] [place] [address] [phone] Referring Physician PHYSICIAN DRAINAGE INSPECTOR 12/02/24
--- OUTSIDE RECORDS SUMMARY | 2025-05-18 18:10 | XMS_ITS | Encounter Summary ---
Author Organization [facility] Address [address] [place] [address] Care Team Providers Care Steeple Jack Name Role Phone Feliz Mai MD Primary Care Provider [phone] Cornelius Guevara MD Unavailable [phone] Vaibhav Burgess MD Unavailable [phone] Krish Contreras MD Unavailable [phone] Radha Holliday ANP-BC Unavailable [phone] Chase Rubio MD Unavailable [phone] Raven Wallace PA-C Unavailable [phone] Encounter Details Date Type Department Care Team (Late st Contact Info) Description 08/08/2021 Abstract [facility] [address] [place] [address] Cornelius Guevara MD [address] [place] [address] [phone] Social History Tobacco Use Types Packs/Day Years Used Date Smoking Tobacco: Former Cigarettes Q uit: 04/13/1990 Smokeless Tobacco: Current Chew Alcohol Use Standard Drinks/Week Comments No 0 (1 standard drink = 0.6 oz pur e alcohol) Sex and Gender Information Value Date Recorded Sex Assigned at Male 12/01/2024 10:06 AM JOINT CUTTER Legal Sex Male 1:26 AM CDT Gender Identity Not on file Sexual Orientation Not on file 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 Job End Date 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 Not on file No t on file Not on file Not on file Not on file Not on file documented as of this encounter Plan of Treatment Upcoming Encounters Date Type Department Care Team (Late st Contact Info) Description 08/06/2025 3:15 AM JOINT CUTTER Allied Health/Nurse Visit [facility] [address] [place] [address] Chase Rubio MD [address] [place] [address] 01/06/2026 10:00 AM CDT Office Visit [facility] [address] [place] [address] Raven Wallace PA-C [address] [place], [place] [address] 01/06/2026 10:00 AM CDT Allied Health/Nurse Visit [facility] [place] [address] [place] [address] Chase Rubio MD [address] [place] [address] documented as of this encounter Procedures Procedure [...] on filedocumented in this encounter Care Teams Steeple Jack Relationship Specialty Start Date End Date Feliz Mai MD [address] [place] [address] PCP - General INTERNAL MEDICINE 04/13/16 Cornelius Guevara MD [address] [place], [place] [address] [place] Marketing Mgr CARDIOVASCULAR DISEASE 09/12/17 01/22/24 Vaibhav Burgess MD [address] [place], [place] [address] EP Marketing Mgr CLINICAL CARDIAC ELECTROPHYSIOLOGY 11/14/19 01/22/24 Krish Contreras MD [address] [place] [phone] INTERVENTIONAL CARDIOLOGY 01/23/2412/05 Radha Holliday, [facility]- [address] [place] [address] Nurse Practitioner NURSE PRACTITIONER ADULT HEALTH 01/23/24 Chase Rubio MD [address] [place], [place] [phone] Consulting Physician CLINICAL CARDIAC ELECTROPHYSIOLOGY 12/02/24 Raven Wallace PA-C [address] [place] [address] Referring Physician PHYSICIAN SEAFOOD TECHNOLOGY SPECIALIST 12/02/24 documented as of this encounter
--- OUTSIDE RECORDS SUMMARY | 2025-05-18 18:10 | XMS_ITS | Encounter Summary ---
Author Organization [facility] Address [address] [place] [address] Care Team Providers Care Auditor Medical Claims Name Role Phone Feliz Mai MD Primary Care Provider [phone] Cornelius Guevara MD Unavailable [phone] Vaibhav Burgess MD Unavailable [phone] Krish Contreras MD Unavailable [phone] Radha Holliday ANP-BC Unavailable [phone] Chase Rubio MD Unavailable [phone] Raven Wallace PA-C Unavailable [phone] Encounter Details Date Type Department Care Team (Late st Contact Info) Description 04/06/2020 Abstract [facility] [address] [place] [address] Cornelius Guevara MD [address] [place] [address] [phone] Social History Tobacco Use Types Packs/Day Years Used Date Smoking Tobacco: Former Smokeless Tobacco: Current Chew Alcohol Use Standard Drinks/Week Comments No 0 (1 standard drink = 0.6 oz pur e alcohol) Sex and Gender Information Value Date Recorded Sex Assigned at Male 12/01/2024 10:06 AM PC NETWORK TECHNICIAN Legal Sex Male 1:26 AM CDT Gender Identity Not on file Sexual Orientation Not on file 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 Not on file Not on file No t on file Not on file Not on file Not on file Not on file documented as of this encounter Plan of Treatment Upcoming Encounters Date Type Department Care Team (Late st Contact Info) Description 08/06/2025 3:15 AM PC NETWORK TECHNICIAN Allied Health/Nurse Visit [facility] [address] [place] [address] Chase Rubio MD [address] [place] [address] 01/06/2026 10:00 AM CDT Office Visit [facility] [place] [address] [place] [address] Raven Wallace PA-C [address] [place], [place] [address] 01/06/2026 10:00 AM CDT Allied Health/Nurse Visit [facility] [place] [address] [place] [address] Chase Rubio MD [address] [place], [place] [address] documented as of this encounter Visit Diagnoses Not on filedocumented in this encounter Additional Health Concerns Infection Onset Date Last Indicated Resolved Time COVID-19 Rule Out 05/24/2020 05/24/2020 05/25/2020 10:00 PM CDT COVID-19 Rule Out 06/05/2020 06/05/2020 06/06/2020 9:06 PM CDT COVID-19 Rule Out 02/12/2021 02/12/2021 02/12/2021 7:10 PM CDT documented as of this encounter Care Teams Auditor Medical Claims Relationship Specialty Start Date End Date Feliz Mai MD [address] [place] [address] PCP - General INTERNAL MEDICINE 04/13/16 Cornelius Guevara MD [address] [place] [address] [place] Fur Comber CARDIOVASCULAR DISEASE 09/12/17 01/22/24 Vaibhav Burgess MD [address] [place] [address] EP Fur Comber CLINICAL CARDIAC ELECTROPHYSIOLOGY 11/14/19 01/22/24 Krish Contreras MD [address] [place] [address] INTERVENTIONAL CARDIOLOGY 01/23/2412/05 Radha Holliday, [facility]- [address] [place] [address] Nurse Practitioner NURSE PRACTITIONER ADULT HEALTH 01/23/24 Chase Rubio MD [address] [place] [address] Consulting Physician CLINICAL CARDIAC ELECTROPHYSIOLOGY 12/02/24 Raven Wallace PA-C [address] [place] [address] 619701 Referring Physician PHYSICIAN HEMMING AND TACKING MACHINE OPERATOR 12/02/24 documented as of this encounter
--- OUTSIDE RECORDS SUMMARY | 2025-05-18 18:10 | XMS_ITS | Encounter Summary ---
Author Organization [facility] Address [address] [place] [address] Care Team Providers Care Pipe Testing Technician Name Role Phone Feliz Mai MD Primary Care Provider [phone] Cornelius Guevara MD Unavailable [phone] Vaibhav Burgess MD Unavailable [phone] Krish Contreras MD Unavailable [phone] Radha Holliday ANP-BC Unavailable [phone] Chase Rubio MD Unavailable [phone] Raven Wallace PA-C Unavailable [phone] Encounter Details Date Type Department Care Team (Late st Contact Info) Description 06/17/2021 Abstract [facility] [address] [place] [address] Cornelius Guevara MD [address] [place] [address] [phone] Social History Tobacco Use Types Packs/Day Years Used Date Smoking Tobacco: Former Cigarettes Q uit: 04/13/1990 Smokeless Tobacco: Current Chew Alcohol Use Standard Drinks/Week Comments No 0 (1 standard drink = 0.6 oz pur e alcohol) Sex and Gender Information Value Date Recorded Sex Assigned at Male 12/01/2024 10:06 AM CUSTOM CAR BUILDER Legal Sex Male 1:26 AM CDT Gender Identity Not on file Sexual Orientation Not on file 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 Job End Date 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 Not on file Not on file No [...] st Contact Info) Description 08/06/2025 3:15 AM CUSTOM CAR BUILDER Allied Health/Nurse Visit [facility] [address] [place] [address] Chase Rubio MD [address] [place], [place] [address] 01/06/2026 10:00 AM CDT Office Visit [facility] [place] [address] [place] [address] Raven Wallace PA-C [address] [place], [place] [address] 01/06/2026 10:00 AM CDT Allied Health/Nurse Visit [facility] [place] [address] [place] [address] Chase Rubio MD [address] [place] [address] documented as of this encounter Procedures Procedure Name Priority Date/Time Associated Diagnosis Comments CMP (ABSTRACTED LAB) Routine 04/08/2021 TSH (OUTSIDE LAB) Routine 04/08/2021 CBC (OUTSIDE LAB) Routine 04/08/2021 LIPID PANEL Routine 04/08/2021 THYROXINE, FREE (FT4) Routine 04/08/2021 documented in this encounter Results * CBC (OUTSIDE LAB) (04/08/2021) [facility] WBC 9.5 3.8 - 10.8 HGB 16.6 13.2 - 17.1 HCT 49.8 38.5 - 50.0 PLT 316 140 - 400 RBC 5.53 4.20 - 5.80 04/08/2021 us [facility] Abstract LAB-OUTSIDE/ABSTRACTED Final Result * THYROXINE, FREE (FT4) (04/08/2021) [facility] FREE T4 1.3 0.8 - 1.8 04/08/2021 us Doc [facility] Abstract LABORATORY Final Result * TSH (OUTSIDE LAB) (04/08/2021) [facility] TSH 3.64 0.40 - 4.50 04/08/2021 us Doc [facility] Abstract LAB-OUTSIDE/ABSTRACTED Final Result * (ABNORMAL) CMP (ABSTRACTED LAB) (04/08/2021) [facility] SODIUM S/P/B 141 135 - 146 POTASSIUM [...] on filedocumented in this encounter Care Teams Pipe Testing Technician Relationship Specialty Start Date End Date Feliz Mai MD [address] [place] [phone] PCP - General INTERNAL MEDICINE 04/13/16 Cornelius Guevara MD [address] [place] [address] [place] Computer Forensics Analyst CARDIOVASCULAR DISEASE 09/12/17 01/22/24 Vaibhav Burgess MD [address] [place] [address] EP Computer Forensics Analyst CLINICAL CARDIAC ELECTROPHYSIOLOGY 11/14/19 01/22/24 Krish Contreras MD [address] [place] [address] INTERVENTIONAL CARDIOLOGY 01/23/2412/05 Radha Holliday, [facility]- [address] [place] [address] Nurse Practitioner NURSE PRACTITIONER ADULT HEALTH 01/23/24 Chase Rubio MD [address] [place] [address] Consulting Physician CLINICAL CARDIAC ELECTROPHYSIOLOGY 12/02/24 Raven Wallace PA-C [address] [place] [address] Referring Physician PHYSICIAN SUPPORT MANAGER 12/02/24 documented as of this encounter
--- OUTSIDE RECORDS SUMMARY | 2025-05-18 18:10 | XMS_ITS | Encounter Summary ---
Author Organization [facility] Address [address] [place] [address] Care Team Providers Care Executive Chef Assistant Name Role Phone Feliz Mai MD Primary Care Provider [phone] Cornelius Guevara MD Unavailable [phone] Vaibhav Burgess MD Unavailable [phone] Krish Contreras MD Unavailable [phone] Radha Holliday ANP-BC Unavailable [phone] Chase Rubio MD Unavailable [phone] Raven Wallace PA-C Unavailable [phone] Encounter Details Date Type Department Care Team (Late st Contact Info) Description 08/03/2021 Abstract [facility] [address] [place] [address] Cornelius Guevara MD [address] [place] [address] [phone] Social History Tobacco Use Types Packs/Day Years Used Date Smoking Tobacco: Former Cigarettes Q uit: 04/13/1990 Smokeless Tobacco: Current Chew Alcohol Use Standard Drinks/Week Comments No 0 (1 standard drink = 0.6 oz pur e alcohol) Sex and Gender Information Value Date Recorded Sex Assigned at Male 12/01/2024 10:06 AM FOOD SERVICE KITCHEN SUPERVISOR Legal Sex Male 1:26 AM CDT Gender Identity Not on file Sexual Orientation Not on file 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 Job End Date 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 Not on file Not on file No t on file Not on file Not on file Not on file Not on file documented as of this encounter Plan of Treatment Upcoming Encounters Date Type Department Care Team (Late st Contact Info) Description 08/06/2025 3:15 AM FOOD SERVICE KITCHEN SUPERVISOR Allied Health/Nurse Visit [facility] [address] [place] [address] Chase Rubio MD [address] [place] [address] 01/06/2026 10:00 AM CDT Office Visit [facility] [place] [address] [place] [address] Raven Wallace PA-C [address] [place], [place] [address] 01/06/2026 10:00 AM CDT Allied Health/Nurse Visit [facility] [place] [address] [place] [address] Chase Rubio MD [address] [place] [address] documented as of this encounter Procedures Procedure [...] on filedocumented in this encounter Care Teams Executive Chef Assistant Relationship Specialty Start Date End Date Feliz Mai MD [address] [place] [address] PCP - General INTERNAL MEDICINE 04/13/16 Cornelius Guevara MD [address] [place] [address] [facility] Solid Tire Tuber Machine Operator CARDIOVASCULAR DISEASE 09/12/17 01/22/24 Vaibhav Burgess MD [address] [place] [address] EP Solid Tire Tuber Machine Operator CLINICAL CARDIAC ELECTROPHYSIOLOGY 11/14/19 01/22/24 Krish Contreras MD [address] [place] [address] INTERVENTIONAL CARDIOLOGY 01/23/2412/05 Radha Holliday, [facility]- [address] [place] [address] Nurse Practitioner NURSE PRACTITIONER ADULT HEALTH 01/23/24 Chase Rubio MD [address] [place] [address] Consulting Physician CLINICAL CARDIAC ELECTROPHYSIOLOGY 12/02/24 Raven Wallace PA-C [address] [place] [address] Referring Physician PHYSICIAN FIREARMS INSPECTOR 12/02/24 documented as of this encounter
--- OUTSIDE RECORDS SUMMARY | 2025-05-18 18:10 | XMS_ITS | Encounter Summary ---
Author Organization [facility] Address [address] [place] [address] Care Team Providers Care Metal Ceiling Builder Name Role Phone Feliz Mai MD Primary Care Provider [phone] Cornelius Guevara MD Unavailable [phone] Vaibhav Burgess MD Unavailable [phone] Krish Contreras MD Unavailable [phone] Radha Holliday ANP-BC Unavailable [phone] Chase Rubio MD Unavailable [phone] Raven Wallace PA-C Unavailable [phone] Encounter Details Date Type Department Care Team (Late st Contact Info) Description 11/24/2021 Abstract [facility] [address] [place] [address] Cornelius Guevara MD [address] [place] [address] [phone] Social History Tobacco Use Types Packs/Day Years Used Date Smoking Tobacco: Former Cigarettes Q uit: 04/13/1990 Smokeless Tobacco: Current Chew Alcohol Use Standard Drinks/Week Comments No 0 (1 standard drink = 0.6 oz pur e alcohol) Sex and Gender Information Value Date Recorded Sex Assigned at Male 12/01/2024 10:06 AM CMO & PRESIDENT Legal Sex Male 1:26 AM CDT Gender Identity Not on file Sexual Orientation Not on file 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 Not on file Not on file No t on file Not on file Not on file Not on file Not on file documented as of this encounter Plan of Treatment Upcoming Encounters Date Type Department Care Team (Late st Contact Info) Description 08/06/2025 3:15 AM CMO & PRESIDENT Allied Health/Nurse Visit [facility] [address] [place] [address] Chase Rubio MD [address] [place] [address] 01/06/2026 10:00 AM CDT Office Visit [facility] [address] [place] [address] Raven Wallace PA-C [address] [place], [place] [address] 01/06/2026 10:00 AM CDT Allied Health/Nurse Visit [facility] [place] [address] [place] [address] Chase Rubio MD [address] [place] [address] documented as of this encounter Procedures Procedure [...] on filedocumented in this encounter Care Teams Metal Ceiling Builder Relationship Specialty Start Date End Date Feliz Mai MD [address] [place] [address] PCP - General INTERNAL MEDICINE 04/13/16 Cornelius Guevara MD [address] [place] [address] [facility] Sheet Heater Helper CARDIOVASCULAR DISEASE 09/12/17 01/22/24 Vaibhav Burgess MD [address] [place] [address] EP Sheet Heater Helper CLINICAL CARDIAC ELECTROPHYSIOLOGY 11/14/19 01/22/24 Krish Contreras MD [address] [place] [address] INTERVENTIONAL CARDIOLOGY 01/23/2412/05 Radha Holliday, [facility] [address] [place] [address] Nurse Practitioner NURSE PRACTITIONER ADULT HEALTH 01/23/24 Chase Rubio MD [address] [place] [address] Consulting Physician CLINICAL CARDIAC ELECTROPHYSIOLOGY 12/02/24 Raven Wallace PA-C [address] [place], [place] [address] Referring Physician PHYSICIAN BRICK BAKER 12/02/24 documented as of this encounter
--- OUTSIDE RECORDS SUMMARY | 2025-05-18 18:10 | XMS_ITS | Encounter Summary ---
Author Organization [facility] Address [facility] [place] [address] Care Team Providers Care Power Press Tender Name Role Phone Feliz Mai MD Primary Care Provider [phone] Cornelius Guevara MD Unavailable [phone] Vaibhav Burgess MD Unavailable [phone] Krish Contreras MD Unavailable [phone] Radha Holliday ANP-BC Unavailable [phone] Chase Rubio MD Unavailable [phone] Raven Wallace PA-C Unavailable [phone] Encounter Details Date Type Department Care Team ([facility] Contact Info) Description 11/15/2017 Abstract [facility] [address] [place] [address] Abstract, Doc [facility] Social History Tobacco Use Types Packs/Day Years Used Date Smoking Tobacco: Former Smokeless Tobacco: Current Chew Alcohol Use Standard Drinks/Week Comments No 0 (1 standard drink = 0.6 oz pur e alcohol) Sex and Gender Information Value Date Recorded Sex Assigned at Male 12/01/2024 10:06 AM SENIOR ANDROID DEVELOPER Legal Sex Male 1:26 AM CDT Gender Identity Not on file Sexual Orientation Not on file 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 Not on file Not on file No t on file documented as of this encounter Plan of Treatment Upcoming Encounters Date Type Department Care Team (Late Contact Info) Description 08/06/2025 3:15 AM SENIOR ANDROID DEVELOPER Allied Health/Nurse Visit [facility] [address] [place] [address] Chase Rubio MD [address] [place] [address] 01/06/2026 10:00 AM CDT Office Visit [facility] [place] [address] [address] [place] [address] Raven Wallace PA-C [address] [place] [address] 01/06/2026 10:00 AM CDT Allied Health/Nurse Visit [place] [address] [place] [address] Chase Rubio MD [address] [place] [address] documented as of this encounter Procedures Procedure Name Priority Date/Time Associated Diagnosis Comments AST/SGOT Routine 11/05/2017 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 Atrial fibrillation, permanent THYROID STIM HORMONE TSH Routine 11/05/2017 shelter current use of amiodarone Atrial fibrillation, permanent ALT/SGPT Routine 11/05/2017 shelter current use of amiodarone Atrial fibrillation, permanent documented in this encounter Results * TSH (11/05/2017) Pathologist [facility] TSH 1.78 11/05/2017 Yordan Stallings MD LABORATORY Final Result * ALT/SGPT (11/05/2017) ALT 23 11/05/2017 us Yordan Stallings MD LABORATORY Final Result * AST/SGOT (11/05/2017) AST 23 11/05/2017 us Yordan tSallings MD LABORATORY Final Result documented in this encounter Visit Diagnoses Diagnosis 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 Atrial fibrillation, permanent (CMS/HCC HHS/HCC) Atrial fibrillation documented in this encounter Additional Health Concerns Infection Onset Date Last Indicated Resolved Time COVID-19 Rule Out 05/24/2020 05/24/2020 05/25/2020 10:00 PM CDT COVID-19 Rule Out 06/05/2020 06/05/2020 06/06/2020 9:06 PM CDT COVID-19 Rule Out 02/12/2021 02/12/2021 02/12/2021 7:10 PM CDT documented as of this encounter Care Teams Power Press Tender Relationship Specialty Start Date End Date Feliz Mai MD [address] [place] [address] PCP - General INTERNAL MEDICINE 04/13/16 Cornelius Guevara MD [address] [place] [address] [place] Research Associate Policy CARDIOVASCULAR DISEASE 09/12/17 01/22/24 Vaibhav Burgess MD [address] [place] [address] EP Research Associate Policy CLINICAL CARDIAC ELECTROPHYSIOLOGY 11/14/19 01/22/24 Krish Contreras MD [address] [place] [address] INTERVENTIONAL CARDIOLOGY 01/23/2412/05 Radha Holliday ANP- [address] [place] [address] Nurse Practitioner NURSE PRACTITIONER ADULT HEALTH 01/23/24 Chase Rubio MD [address] [place] [address] Consulting Physician CLINICAL CARDIAC ELECTROPHYSIOLOGY 12/02/24 Raven Wallace PA-C [address] [place] [address] Referring Physician PHYSICIAN DRY WALL INSTALLER 12/02/24 documented as of this encounter
[2025-05-18 18:16] VITALS: BP 140/46; PULSE 61; RESP 18; TEMP 39.3; O2SAT 98
--- NOTE | 2025-05-18 18:29 | ED.EXTPRO ---
HPI - Extremity Problem General Chief complaint: Extremity Problem,Nontraumatic Stated complaint: right leg pain- dizzy Time Seen by Provider: 05/18/25 18:30 Focused HPI: This is a 79 year old male that presents to the ER for right lower extremity redness, swelling. Ongoing over the last couple of hours. Patient noted to be febrile in triage. Also reports a cough, history of COPD GENERAL: Elderly, well-nourished, and in no acute distress. HEAD: Normocephalic, atraumatic. CHEST: Clear to auscultation. ?No respiratory distress. HEART: Regular rate and rhythm.? NEURO: ?Alert and oriented x3. Patient screened in triage and initial orders placed.? ?Additional care and disposition to be based upon?diagnostic testing and treatment. Related Data Home Medications ?Medication ?Instructions ?Recorded ?Confirmed ?Last Taken ?Type albuterol sulfate 90 mcg/actuation 2 puff inhalation QID PRN 07/16/20 09/03/22 07/21/20 19:00 History aerosol inhaler (ProAir HFA) Shortness Of Breath Or Wheezing atorvastatin 40 mg tablet 40 mg PO DAILY 07/16/20 09/03/22 07/21/20 19:00 History budesonide-formoterol HFA 160 2 puff inhalation Q12H 07/16/20 09/03/22 07/21/20 19:00 History mcg-4.5 mcg/actuation aerosol inhaler (Symbicort) cetirizine 10 mg capsule (Zyrtec) 10 mg PO DAILY 07/16/20 09/03/22 07/21/20 19:00 History ipratropium bromide 42 mcg (0.06 2 spray intranasal BID 07/16/20 09/03/22 07/21/20 19:00 History %) nasal spray rivaroxaban 20 mg tablet (Xarelto) 20 mg PO DAILY 07/16/20 09/03/22 07/21/20 19:00 History Held on 07/22/20. Instructions: Resume on 07/24/20. tamsulosin 0.4 mg capsule 0.4 mg PO QAM 07/16/20 09/03/22 07/21/20 19:00 History tiotropium bromide 18 mcg capsule 1 cap inhalation BID 07/16/20 09/03/22 07/21/20 19:00 History with inhalation device (Spiriva with HandiHaler) metoprolol tartrate 25 mg tablet 25 mg PO QPM 01/19/21 09/03/22 Unknown History budesonide 0.25 mg/2 mL suspension 0.25 mg irrigation BID PRN Dyspnea 03/14/21 09/03/22 Unknown History for nebulization furosemide 40 mg tablet 40 mg PO QAM 03/14/21 09/03/22 Unknown History Allergies Allergy/AdvReac Type Severity Reaction Status Date / Time No Known Allergies Allergy Verified 03/14/21 10:42 [facility] Past Medical History Medical History Atrial fibrillation COPD (chronic obstructive pulmonary disease) Hyperlipidemia CAILIN (obstructive sleep apnea) Pacemaker Urinary retention Family History Family History Father Cerebrovascular accident Family history of diabetes mellitus in first degree relative Mother Cerebrovascular accident Family history of diabetes mellitus in first degree relative Sibling Family history of lung cancer Social History Social History Smoking packs per day: 1 Smoking cigarettes per day: 20.0 Years smoked: 40 Smoking pack-years: 40.00 Smoking status: Former smoker Tobacco type: cigarettes Smoking end date: 03/31/05 Alcohol intake: former Alcohol use details: SOCIALLY IN PAST Substance use: never Substance use type: does not use Living arrangements: with family Additional living arrangements comments: SPOUSE Spiritual care concerns: No Course Vital Signs Vital signs: Vital Signs Temperature 102.7 F H 05/18/25 18:16 Pulse Rate 61 05/18/25 18:16 Respiratory Rate 18 05/18/25 18:16 Blood Pressure 140/46 L 05/18/25 18:16 Pulse Oximetry 98 05/18/25 18:16 Oxygen Delivery Room Air 05/18/25 18:16 Temperature 102.7 F H 05/18/25 18:16 Pulse Rate 61 05/18/25 18:16 Respiratory Rate 18 05/18/25 18:16 Blood Pressure 140/46 L 05/18/25 18:16 Pulse Oximetry 98 05/18/25 18:16 Oxygen Delivery Room Air 05/18/25 18:16 MDM - Extremity (Nontraumatic) MDM Narrative Medical decision making narrative: Patient left after medical screening exam and initial workup and before any evaluation or management Lab Data 05/18/25 18:49 05/18/25 18:49 Labs: Lab Results 05/18/25 Range/Units 18:49 WBC 25.3 H (4.5-10.0) K/mm3 RBC 4.93 (4.6-6.20) M/mm3 Hgb 15.4 (14.0-18.0) g/dL Hct 45.1 (42.0-52.0) % MCV 91.5 (80-100) fl MCH 31.2 (26-34) pg MCHC 34.1 (32-36) g/dl RDW 13.8 (11.5-14.5) % Plt Count 286 (150-375) k/mm3 MPV 9.1 (7.4-10.4) fl Immature Gran % (Auto) Not Reportable Neut % (Auto) Not Reportable Lymph % (Auto) Not Reportable [place] % (Auto) Not Reportable Eos % (Auto) Not Reportable Baso % (Auto) Not Reportable Lymph # (Auto) Not Reportable [place] # (Auto) Not Reportable Eos # (Auto) Not Reportable Baso # (Auto) Not Reportable Abs Immat Gran (auto) Not Reportable Absolute Neuts (auto) Not Reportable Absolute Nucleated RBC Not Reportable Total Counted 100 Neutrophils % (Manual) 94 H (46-73) % Band Neutrophils % 2 (0-6) % Lymphocytes % (Manual) 2.0 L (18-44) % Monocytes % (Manual) 1 L (3-9) % Basophils % (Manual) 1 (0-1) % Nucleated RBC % Not Reportable Abs Neuts (Manual) 24.28 H (1.3-6.7) K/mm3 Abs Lymphs (Manual) 0.50 L (1.1-4.5) K/mm3 Abs Monocytes (Manual) 0.25 (0.1-0.90) K/mm3 Abs Basophils (Manual) 0.25 H (0.0-0.1) K/mm3 Platelet Estimate Adequate (Adequate) Schistocytes None seen ESR 11 (0-20) mm/hr PT 21.8 H (11.1-14.7) Seconds INR 2.0 APTT 44.2 H (22.3-36.8) Seconds Sodium 136 L (137-145) mmol/L Potassium 4.5 (3.4-5.0) mmol/L Chloride 104 (98-107) mmol/L Carbon Dioxide 23 (22-30) mmol/L Anion Gap 9 (4-12) mmol/L BUN 17 (9-20) mg/dL Creatinine 0.99 (0.7-1.3) mg/dL Estim Creat Clear Calc 54 ml/min Estimated GFR > 60 (59 - ) Glucose 121 H (65-110) mg/dL Lactic Acid 1.4 (0.7-2.0) mmol/L Calcium 9.8 (8.4-10.2) mg/dL Total Bilirubin 2.0 H (0.2-1.3) mg/dL AST 31 (17-59) U/L ALT 18 (6-50) U/L Alkaline Phosphatase 105 (38-126) U/L C-Reactive Protein 2.4 H (<1.0) mg/dL Total Protein 7.7 (6.3-8.2) g/dL Albumin 4.3 (3.5-5.1) g/dL Influenza A (RT-PCR) Negative (Negative) Influenza B (RT-PCR) Negative (Negative) RSV (RT-PCR) Negative (Negative) SARS-CoV-2 RNA (RT-PCR) Negative (Negative) Imaging Data Radiologist's impression: ITS Impressions Chest X-Ray 05/18/25 19:00 Impression: 1: No acute cardiopulmonary disease. Discharge Plan Discharge Clinical Impression: Cellulitis Qualifiers: Site of cellulitis: extremity Site of cellulitis of extremity: lower extremity Laterality: right Qualified Code(s): L03.115 - Cellulitis of right lower limb Patient Disposition: Elopement After Seen by Prov Patient Language: Japanese Prescriptions: No Action metoprolol tartrate 25 mg tablet 25 mg PO QPM atorvastatin 40 mg Tablet 40 mg PO DAILY tamsulosin 0.4 mg Capsule 0.4 mg PO QAM albuterol sulfate [ProAir HFA] 90 mcg/actuation Hfa Aerosol Inhaler 2 puff INHALATION QID PRN (Reason: Shortness Of Breath Or Wheezing) ipratropium bromide 42 mcg (0.06 %) spray,non-aerosol 2 spray INTRANASAL BID Spiriva with HandiHaler 18 mcg Capsule, W/Inhalation Device 1 cap INHALATION BID budesonide-formoterol [Symbicort] 160-4.5 mcg/actuation Hfa Aerosol Inhaler 2 puff INHALATION Q12H Zyrtec 10 mg Capsule 10 mg PO DAILY Xarelto 20 mg Tablet 20 mg PO DAILY furosemide 40 mg tablet 40 mg PO QAM budesonide 0.25 mg/2 mL suspension for nebulization 0.25 mg irrigation BID PRN (Reason: Dyspnea) Follow-up/Referrals: Feliz Mai MD [Primary Care Provider, Internal Medicine]
[2025-05-18] MEDS: ACETAMINOPHEN 500 MG TABLET 1000 MG PO (18:57)
[2025-05-18 19:04] LABS: Hematocrit 45.1 % (42.0-52.0); Hemoglobin 15.4 g/dL (14.0-18.0); Mean Corpuscular HGB Conc 34.1 g/dl (32-36); Mean Corpuscular Hemoglobin 31.2 pg (26-34); Mean Corpuscular Volume 91.5 fl (80-100); Platelet Count Result 286 k/mm3 (150-375); Red Blood Count 4.93 M/mm3 (4.6-6.20); White Blood Count 25.3 K/mm3 (4.5-10.0)
[2025-05-18 19:12] LABS: Alanine Aminotransferase 18 U/L (6-50); Albumin Level 4.3 g/dL (3.5-5.1); Alkaline Phosphatase 105 U/L (38-126); Anion Gap 9 mmol/L (4-12); Aspartate Amino Transferase 31 U/L (17-59); Bilirubin,Total 2.0 mg/dL (0.2-1.3); Blood Urea Nitrogen 17 mg/dL (9-20); CRP 2.4 mg/dL (<1.0); Calcium 9.8 mg/dL (8.4-10.2); Carbon Dioxide 23 mmol/L (22-30); Chloride 104 mmol/L (98-107); Estimated CRCL calculation 54 ml/min; Estimated Glomerular Filt Rate > 60; Glucose 121 mg/dL (65-110); Potassium 4.5 mmol/L (3.4-5.0); Sodium 136 mmol/L (137-145); Total Protein 7.7 g/dL (6.3-8.2)
[2025-05-18 19:16] LABS: INR 2.0; Prothrombin Time 21.8 Seconds (11.1-14.7)
[2025-05-18 19:18] LABS: Partial Thromboplastin Time 44.2 Seconds (22.3-36.8)
[2025-05-18 19:34] LABS: Influenza A QL RT-PCR Negative (Negative); Influenza B QL RT-PCR Negative (Negative); RSV RNA, RT-PCR Negative (Negative); SARS-CoV-2 RNA PCR Negative (Negative)
[2025-05-18 19:38] LABS: Band Neutrophils Percent 2 % (0-6); Basophils Absolute Manual 0.25 K/mm3 (0.0-0.1); Basophils Percent Manual 1 % (0-1); Lymphocytes Absolute Manual 0.50 K/mm3 (1.1-4.5); Lymphocytes Percent Manual 2.0 % (18-44); Monocytes Absolute Manual 0.25 K/mm3 (0.1-0.90); Monocytes Percent Manual 1 % (3-9); Neutrophils Absolute Manual 24.28 K/mm3 (1.3-6.7); Neutrophils Percent Manual 94 % (46-73); Total Cells Counted 100
[2025-05-18 19:39] LABS: Schistocytes None Seen
--- NOTE | 2025-05-18 23:10 | PC.NURSE ---
sales support assistant made aware that pt is not in triage. This RN informed crna and ERP Dr Gould, that pt had 102.7 temp on arrival to ED, diastolic was 46, that pt reported feeling weak and dizzy. WBC upon after blood work showed 25plus. Attempted to call pt and pts from demographic information. No answer, attempted to leave, no voicemail set up.
--- OUTSIDE RECORDS SUMMARY | 2025-05-18 23:53 | XMS_ITS | Encounter Summary ---
Author Organization [facility] System Address [facility] [place] [address] Care Team Providers Care Inpatient Care Manager Rn Name Role Phone Feliz Mai MD Primary Care Provider [phone] Cornelius Guevara MD Unavailable [phone] Vaibhav Burgess MD Unavailable [phone] Krish Contreras MD Unavailable Radha Holliday ANP-BC Unavailable [phone] Chase Rubio MD Unavailable [phone] Raven Wallace PA-C Unavailable [phone] Encounter Details Date Type Department Care Team ([facility] Contact Info) Description 11/15/2017 Abstract [facility] [address] [place] [phone] Abstract, Doc [facility] Social History Tobacco Use Types Packs/Day Years Used Date Smoking Tobacco: Former Smokeless Tobacco: Current Chew Alcohol Use Standard Drinks/Week Comments No 0 (1 standard drink = 0.6 oz pur e alcohol) Sex and Gender Information Value Date Recorded Sex Assigned at Male 12/01/2024 10:06 AM IMPACT RETAIL SERVICE MERCHANDISER Legal Sex Male 1:26 AM CDT Gender Identity Not on file Sexual Orientation Not on file 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 Job 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 Date 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 Not on file Not on file No t on file documented as of this encounter Plan of Treatment Upcoming Encounters Date Type Department Care Team (Late Contact Info) Description 08/06/2025 3:15 AM IMPACT RETAIL SERVICE MERCHANDISER Allied Health/Nurse Visit [facility] [address] [place] [address] Chase Rubio MD [address] [place] [address] 01/06/2026 10:00 AM CDT Office Visit [facility] [place] [address] [facility] [place] [address] Raven Wallace PA-C [address] [place] [address] 01/06/2026 10:00 AM CDT Allied Health/Nurse Visit [place] [address] [place] [address] Chase Rubio MD [address] [place] [address] documented as of this encounter Procedures Procedure Name Priority Date/Time Associated Diagnosis Comments AST/SGOT Routine 11/05/2017 terminal supervisor current use of amiodarone Atrial fibrillation, permanent THYROID STIM HORMONE TSH Routine 11/05/2017 longterm current use of amiodarone Atrial fibrillation, permanent ALT/SGPT Routine 11/05/2017 longterm current use of amiodarone Atrial fibrillation, permanent documented in this encounter Results * TSH (11/05/2017) Pathologist [facility] TSH 1.78 11/05/2017 Yordan Stallings MD LABORATORY Final Result * ALT/SGPT (11/05/2017) ALT 23 11/05/2017 us Yordan Stallings MD LABORATORY Final Result * AST/SGOT (11/05/2017) AST 23 11/05/2017 us Yordan Stalligns MD LABORATORY Final Result documented in this encounter Visit Diagnoses Diagnosis terminal supervisor current use of amiodarone Atrial fibrillation, permanent (CMS/HCC HHS/HCC) Atrial fibrillation documented in this encounter Additional Health Concerns Infection Onset Date Last Indicated Resolved Time COVID-19 Rule Out 05/24/2020 05/24/2020 05/25/2020 10:00 PM CDT COVID-19 Rule Out 06/05/2020 06/05/2020 06/06/2020 9:06 PM CDT COVID-19 Rule Out 02/12/2021 02/12/2021 02/12/2021 7:10 PM CDT documented as of this encounter Care Teams Inpatient Care Manager Rn Relationship Specialty Start Date End Date Feliz Mai MD [address] [place] [phone] PCP - General INTERNAL MEDICINE 04/13/16 Cornelius Guevara MD [address] [place] [address] Chitina Emt B CARDIOVASCULAR DISEASE 09/12/17 01/22/24 Vaibhav Burgess MD [address] [place] [address] EP Emt B CLINICAL CARDIAC ELECTROPHYSIOLOGY 11/14/19 01/22/24 Krish Contreras MD [address] [place] [address] INTERVENTIONAL CARDIOLOGY 01/23/2412/05 Radha Holliday ANP- [address] [place] [address] Nurse Practitioner NURSE PRACTITIONER ADULT HEALTH 01/23/24 Chase Rubio MD [address] [place] [address] Consulting Physician CLINICAL CARDIAC ELECTROPHYSIOLOGY 12/02/24 Raven Wallace PA-C [address] [place] [address] Referring Physician PHYSICIAN FINANCIAL ADVISOR 12/02/24 documented as of this encounter
--- OUTSIDE RECORDS SUMMARY | 2025-05-18 23:53 | XMS_ITS | Encounter Summary ---
Author Organization [facility] Address [address] [place] [address] Care Team Providers Care Maintenance Scheduler Name Role Phone Feliz Mai MD Primary Care Provider [phone] Cornelius Guevara MD Unavailable [phone] Vaibhav Burgess MD Unavailable [phone] Krish Contreras MD Unavailable [phone] Radha Holliday ANP-BC Unavailable [phone] Chase Rubio MD Unavailable [phone] Raven Wallace PA-C Unavailable [phone] Encounter Details Date Type Department Care Team (Late st Contact Info) Description 08/03/2021 Abstract [facility] [address] [place] [address] Cornelius Guevara MD [address] [place] [address] [phone] Social History Tobacco Use Types Packs/Day Years Used Date Smoking Tobacco: Former Cigarettes Q uit: 04/13/1990 Smokeless Tobacco: Current Chew Alcohol Use Standard Drinks/Week Comments No 0 (1 standard drink = 0.6 oz pur e alcohol) Sex and Gender Information Value Date Recorded Sex Assigned at Male 12/01/2024 10:06 AM VP PROJECT Legal Sex Male 1:26 AM CDT Gender Identity Not on file Sexual Orientation Not on file 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 Not on file Not on file No t on file Not on file Not on file Not on file Not on file documented as of this encounter Plan of Treatment Upcoming Encounters Date Type Department Care Team (Late st Contact Info) Description 08/06/2025 3:15 AM VP PROJECT Allied Health/Nurse Visit [facility] [address] [place] [address] Chase Rubio MD [address] [place] [address] 01/06/2026 10:00 AM CDT Office Visit [facility] [address] [address] [place] [address] Raven Wallace PA-C [address] [place], [place] [address] 01/06/2026 10:00 AM CDT Allied Health/Nurse Visit [facility] [place] [address] [place] [address] Chase Rubio MD [address] [place] [address] documented as of this encounter Procedures Procedure [...] on filedocumented in this encounter Care Teams Maintenance Scheduler Relationship Specialty Start Date End Date Feliz Mai MD [address] [place] [address] PCP - General INTERNAL MEDICINE 04/13/16 Cornelius Guevara MD [address] [place] [address] Jones Manager Sports CARDIOVASCULAR DISEASE 09/12/17 01/22/24 Vaibhav Burgess MD [address] [place] [address] EP Manager Sports CLINICAL CARDIAC ELECTROPHYSIOLOGY 11/14/19 01/22/24 Krish Contreras MD [address] [place] [address] INTERVENTIONAL CARDIOLOGY 01/23/2412/05 Radha Holliday, [facility]- [address] [place] [address] Nurse Practitioner NURSE PRACTITIONER ADULT HEALTH 01/23/24 Chase Rubio MD [address] [place] [address] Consulting Physician CLINICAL CARDIAC ELECTROPHYSIOLOGY 12/02/24 Raven Wallace PA-C [address] [place] [address] Referring Physician PHYSICIAN BREWERY REPRESENTATIVE 12/02/24 documented as of this encounter
--- OUTSIDE RECORDS SUMMARY | 2025-05-18 23:53 | XMS_ITS | Encounter Summary ---
Author Organization [facility] Address [address] [place] [address] Care Team Providers Care Relay Telegrapher Name Role Phone Feliz Mai MD Primary Care Provider [phone] Cornelius Guevara MD Unavailable [phone] Vaibhav Burgess MD Unavailable [phone] Krish Contreras MD Unavailable [phone] Radha Holliday ANP-BC Unavailable [phone] Chase Rubio MD Unavailable [phone] Raven Wallace PA-C Unavailable [phone] Encounter Details Date Type Department Care Team (Late st Contact Info) Description 11/24/2021 Abstract [facility] [address] [place] [address] Cornelius Guevara MD [address] [place] [address] [phone] Social History Tobacco Use Types Packs/Day Years Used Date Smoking Tobacco: Former Cigarettes Q uit: 04/13/1990 Smokeless Tobacco: Current Chew Alcohol Use Standard Drinks/Week Comments No 0 (1 standard drink = 0.6 oz pur e alcohol) Sex and Gender Information Value Date Recorded Sex Assigned at Male 12/01/2024 10:06 AM MANAGER CLEANING Legal Sex Male 1:26 AM CDT Gender Identity Not on file Sexual Orientation Not on file 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 Not on file Not on file No t on file Not on file Not on file Not on file Not on file documented as of this encounter Plan of Treatment Upcoming Encounters Date Type Department Care Team (Late st Contact Info) Description 08/06/2025 3:15 AM MANAGER CLEANING Allied Health[facility] [address] [place] [address] Chase Rubio MD [address] [place] [address] 01/06/2026 10:00 AM CDT Office Visit [facility] [address] [place] [address] Raven Wallace PA-C [address] [place], [place] [address]47[address] 01/06/2026 10:00 AM CDT Allied Health/Nurse Visit [facility] [place] [address] [place] [address] Chase Rubio MD [address] [place] [address] documented as of this encounter Procedures Procedure [...] on filedocumented in this encounter Care Teams Relay Telegrapher Relationship Specialty Start Date End Date Feliz Mai MD [address] [place] [address] PCP - General INTERNAL MEDICINE 04/13/16 Cornelius Guevara MD [address] [place] [address] [place] Lead Mason Tender CARDIOVASCULAR DISEASE 09/12/17 01/22/24 Vaibhav Burgess MD [address] [place] [address] EP Lead Mason Tender CLINICAL CARDIAC ELECTROPHYSIOLOGY 11/14/19 01/22/24 Krish Contreras MD [address] [place] [address] INTERVENTIONAL CARDIOLOGY 01/23/2412/05 Radha Holliday, [facility] [address] [place] [address] Nurse Practitioner NURSE PRACTITIONER ADULT HEALTH 01/23/24 Chase Rubio MD [address] [place] [address] Consulting Physician CLINICAL CARDIAC ELECTROPHYSIOLOGY 12/02/24 Raven Wallace PA-C [address] [place], [place] [address]211 Referring Physician PHYSICIAN CORRESPONDENCE SECTION SUPERVISOR 12/02/24 documented as of this encounter
--- OUTSIDE RECORDS SUMMARY | 2025-05-18 23:53 | XMS_ITS | Encounter Summary ---
Author Organization [facility] Address [address] [place] [address] Care Team Providers Care Director Of Catering Sales Name Role Phone Feliz Mai MD Primary Care Provider [phone] Cornelius Guevara MD Unavailable [phone] Vaibhav Burgess MD Unavailable [phone] Krish Contreras MD Unavailable [phone] Radha Holliday ANP-BC Unavailable [phone] Chase Rubio MD Unavailable [phone] Raven Wallace PA-C Unavailable [phone] Encounter Details Date Type Department Care Team (Late st Contact Info) Description 06/17/2021 Abstract [facility] [address] [place] [address] Cornelius Guevara MD [address] [place] [address] [phone] Social History Tobacco Use Types Packs/Day Years Used Date Smoking Tobacco: Former Cigarettes Q uit: 04/13/1990 Smokeless Tobacco: Current Chew Alcohol Use Standard Drinks/Week Comments No 0 (1 standard drink = 0.6 oz pur e alcohol) Sex and Gender Information Value Date Recorded Sex Assigned at Male 12/01/2024 10:06 AM HEEL SCOURER Legal Sex Male 1:26 AM CDT Gender Identity Not on file Sexual Orientation Not on file 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 [address] [place] [address] Chase Rubio MD [address] [place], [place] [address] 01/06/2026 10:00 AM CDT Office Visit [facility] [address] [place] [address] Raven Wallace PA-C [address] [place], [place] [address] 01/06/2026 10:00 AM CDT Allied Health/Nurse Visit [facility] [place] [address] [place] [address] Chase Rubio MD [address] [place] [address] documented as of this encounter Procedures Procedure Name Priority Date/Time Associated Diagnosis Comments CMP (ABSTRACTED LAB) Routine 04/08/2021 TSH (OUTSIDE LAB) Routine 04/08/2021 CBC (OUTSIDE LAB) Routine 04/08/2021 LIPID PANEL Routine 04/08/2021 THYROXINE, FREE (FT4) Routine 04/08/2021 documented in this encounter Results * CBC (OUTSIDE LAB) (04/08/2021) [facility] WBC 9.5 3.8 - 10.8 HGB 16.6 13.2 - 17.1 HCT 49.8 38.5 - 50.0 PLT 316 140 - 400 RBC 5.53 4.20 - 5.80 04/08/2021 [facility] Abstract LAB-OUTSIDE/ABSTRACTED Final Result * THYROXINE, FREE (FT4) (04/08/2021) [facility] FREE T4 1.3 0.8 - 1.8 04/08/2021 [facility] Abstract LABORATORY Final Result * TSH (OUTSIDE LAB) (04/08/2021) [facility] TSH 3.64 0.40 - 4.50 04/08/2021 [facility] Abstract LAB-OUTSIDE/ABSTRACTED Final Result * (ABNORMAL) CMP (ABSTRACTED LAB) (04/08/2021) [facility] SODIUM S/P/B 141 135 - 146 POTASSIUM [...] on filedocumented in this encounter Care Teams Director Of Catering Sales Relationship Specialty Start Date End Date Feliz Mai MD [address] [place] [address] PCP - General INTERNAL MEDICINE 04/13/16 Cornelius Guevara MD [address] [place] [address] [place] Condenser Cleaner CARDIOVASCULAR DISEASE 09/12/17 01/22/24 Vaibhav Burgess MD [address] [place] [address] EP Condenser Cleaner CLINICAL CARDIAC ELECTROPHYSIOLOGY 11/14/19 01/22/24 Krish Contreras MD [address] [place] [address] INTERVENTIONAL CARDIOLOGY 01/23/2412/05 Radha Holliday, [facility]- [address] [place] [address] Nurse Practitioner NURSE PRACTITIONER ADULT HEALTH 01/23/24 Chase Rubio MD [address] [place] [address] Consulting Physician CLINICAL CARDIAC ELECTROPHYSIOLOGY 12/02/24 Raven Wallace PA-C [address] [place] [address] Referring Physician PHYSICIAN PLAYGROUND OFFICIAL 12/02/24 documented as of this encounter
--- OUTSIDE RECORDS SUMMARY | 2025-05-18 23:53 | XMS_ITS | Encounter Summary ---
Author Organization [facility] Address [address] [place] [address] Care Team Providers Care Bet Taker Name Role Phone Feliz Mai MD Primary Care Provider [phone] Cornelius Guevara MD Unavailable [phone] Vaibhav Burgess MD Unavailable [phone] Krish Contreras MD Unavailable [phone] Radha Holliday ANP-BC Unavailable [phone] Chase Rubio MD Unavailable [phone] Raven Wallace PA-C Unavailable [phone] Encounter Details Date Type Department Care Team (Late st Contact Info) Description 04/06/2020 Abstract [facility] [address] [place] [address] Cornelius Guevara MD [address] [place] [address] [phone] Social History Tobacco Use Types Packs/Day Years Used Date Smoking Tobacco: Former Smokeless Tobacco: Current Chew Alcohol Use Standard Drinks/Week Comments No 0 (1 standard drink = 0.6 oz pur e alcohol) Sex and Gender Information Value Date Recorded Sex Assigned at Male 12/01/2024 10:06 AM STONE DERRICKMAN AND RIGGER Legal Sex Male 1:26 AM CDT Gender Identity Not on file Sexual Orientation Not on file 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 Not on file Not on file No t on file Not on file Not on file Not on file Not on file documented as of this encounter Plan of Treatment Upcoming Encounters Date Type Department Care Team (Late st Contact Info) Description 08/06/2025 3:15 AM STONE DERRICKMAN AND RIGGER Allied Health/Nurse Visit [facility] [address] [place] [address] Chase Rubio MD [address] [place] [address] 01/06/2026 10:00 AM CDT Office Visit [facility] [place] [address] [place] [address] Raven Wallace PA-C [address] [place], [place] [address] 01/06/2026 10:00 AM CDT Allied Health/Nurse Visit [facility] [place] [address] [address] [place] [address] Chase Rubio MD [address] [place], [place] [address] documented as of this encounter Visit Diagnoses Not on filedocumented in this encounter Additional Health Concerns Infection Onset Date Last Indicated Resolved Time COVID-19 Rule Out 05/24/2020 05/24/2020 05/25/2020 10:00 PM CDT COVID-19 Rule Out 06/05/2020 06/05/2020 06/06/2020 9:06 PM CDT COVID-19 Rule Out 02/12/2021 02/12/2021 02/12/2021 7:10 PM CDT documented as of this encounter Care Teams Bet Taker Relationship Specialty Start Date End Date Feliz Mai MD [address] [place] [address] PCP - General INTERNAL MEDICINE 04/13/16 Cornelius Guevara MD [address] [place] [address] [place] Therapeutic Recreation Assistant CARDIOVASCULAR DISEASE 09/12/17 01/22/24 Vaibhav Burgess MD [address] [place] [address] EP Therapeutic Recreation Assistant CLINICAL CARDIAC ELECTROPHYSIOLOGY 11/14/19 01/22/24 Krish Contreras MD [address] [place] [address] INTERVENTIONAL CARDIOLOGY 01/23/2412/05 Radha Holliday, [facility]- [address] [place] [address] Nurse Practitioner NURSE PRACTITIONER ADULT HEALTH 01/23/24 Chase Rubio MD [address] [place] [address] Consulting Physician CLINICAL CARDIAC ELECTROPHYSIOLOGY 12/02/24 Raven Wallace PA-C [address] [place] [address] [phone] Referring Physician PHYSICIAN COMPUTER COMPOSITOR 12/02/24 documented as of this encounter
--- OUTSIDE RECORDS SUMMARY | 2025-05-18 23:53 | XMS_ITS | Clinical Summary ---
Author Organization [facility] Address [address] [place] [address] Care Team Providers Care Community Health Outreach Worker Name Role Phone Kenton Freeman MD Primary Care Provider [phone] Radha Holliday ANP-BC Unavailable [phone] Chase Rubio [...] use of anticoagulant 7 SVT (supraventricular tachycardia) ([facility]) Cardiac pacemaker in situ 04/13/2016 CVA (cerebral vascular accident) ([facility] C) 04/13/2016 Ventricular tachycardia ([facility]) 2015 Atrial fibrillation, permanent ([facility]) 04/13/2016 COPD (chronic obstructive pu lmonary disease) ([facility]) Resolved Problems Problem Noted Date Diagnosed Date Resolved Date intermediate current use of amiodarone 10/23/2016 08/14/2024 Encounters Date Type Department Care Team Description 05/01/2025 2:10 PM CDT - 05/01/2025 11:59 PM CDT Hospital Encounter [facility] [address] [address] Kenton Freeman MD Discharge Disposition: Home or Self Care (Routine Discharge) 05/01/2025 Travel 04/28/2025 1:15 AM CDT Allied Health/Nurse Visit [facility] [address] [place] [address] Chase Rubio MD 04/09/2025 3:01 AM CDT - 04/09/2025 4:37 AM CDT Emergency [facility] [address] [place] [address] Broderick Torres MD Fall; Laceration Discharge Disposition: Home or Self Care (Routine Discharge) 04/09/2025 Travel 04/07/2025 11:55 AM CDT - 04/07/2025 11:59 PM CDT Hospital Encounter [facility] [address] [place] [address] Kenton Freeman MD Discharge Disposition: Home or [...] Sex Assigned at Male 12/01/2024 10:06 AM CASE PLANNER Legal Sex Male 1:26 AM CDT Gender Identity Not on file Sexual Orientation Not on file 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 [address] [place] [address] Chase Rubio MD [address] [place], [place] [address] 01/06/2026 10:00 AM CDT Office Visit [facility] [address] [place] [address] Raven Wallace PA-C [address] [place], [place] 466806 [phone] 01/06/2026 10:00 AM CDT Allied Health/Nurse Visit [place] [address] [place] [address] Chase Rubio MD [address] [place], [place] [address] [phone] Health Maintenance Due Date Last Done Comments [...] this topic Medical Devices Implanted Type Area Quality Coordinator Device Identifier Shelf Expiration Date Model / Serial / Lot Medtronic Rv-Lead-09/15 Implanted:Qty : 1 on 09/15/2015 by Vaibhav Burgess MD Lead Implant MEDTR[employer]IC CARDIAC RHYTHM AND HEART FAILURE - DIV M [id number] / [id number] / Medtronic Susie Mri Sr-02/15/2021 Implanted:Qty : 1 on 02/15/2021 by Vaibhav Burgess MD Pacemaker Left: Chest Wall [employer]TR[employer] CARDIAC RHYTHM AND HEART FAILURE - DIV M 06/28/2022 [id number] / [id number] / Explanted Type Area Quality Coordinator Device Identifier Shelf Expiration Date Model / Serial / Lot Medtronic Accolade [id number] -09/15/2015 Implanted:Qty: 1 on 09/15/2015 by Vaibhav Burgess MD Explanted:Qty: 1 on 02/15/2021 by Vaibhav Burgess MD Pacemaker [employer]TR[employer]IC CARDIAC RHYTHM AND HEART FAILURE - DIV M [id number] / [id number] / Procedures Procedure Name Priority Date/Time Associated [...] 1:58 PM Narrative 05/03/2025 2:[address] [place] [id number] Examination: Right ribs. Exam time: 1418 hours. [...] Procedure Note Nick Hoskins MD - 05/03/[address] [place] [address] Examination: Right ribs. Exam time: 1418 hours. [...] No acute findings. Referred By: Interpreted By: Ncik Hoskins MD, 05/03/2025 1:58 PM us Kenton [...] 2:56 PM Narrative 05/01/2025 4:08 PM CDT [address] [place] [id number] [place] [id number] Examination: Chest x-ray 2 view Exam time: [...] Procedure Note Ranulfo Robertson DO - 05/01/[address] [place] [id number] [place] [address] Examination: Chest x-ray 2 view Exam time: [...] 2:01 PM Narrative 05/03/2025 2:04 PM CDT [address] [place] [id number] Examination: Cervical spine. Exam time: 1415 hours. [...] Procedure Note Nick Hoskins MD - 05/03/[address] [place] [id number] Examination: Cervical spine. Exam time: 1415 hours. [...] 4:06 AM Narrative 04/09/2025 4:09 AM CDT [address] [place] [id number] EXAMINATION: CT THORACIC SPINE WITHOUT CONTRAST INDICATION: [...] Procedure Note Narinder Marrero MD - 04/09/[address] [place] [id number] EXAMINATION: CT THORACIC SPINE WITHOUT CONTRAST INDICATION: [...] 3:53 AM Narrative 04/09/2025 3:55 AM CDT [address] [place] [id number] EXAMINATION: CT HEAD WITHOUT CONTRAST INDICATION: Trauma. [...] Procedure Note Narinder Marrero MD - 04/09/2025 [place] [facility] [place] [id number] EXAMINATION: CT HEAD WITHOUT CONTRAST INDICATION: Trauma. [...] cells and maxillary sinuses. The calvariumis intact. [place] can be seen along the posterior right [...] 4:04 AM Narrative 04/09/2025 4:05 AM CDT [address] [place] [id number] EXAMINATION: CT CERVICAL SPINE WITHOUT CONTRAST INDICATION: [...] Procedure Note Narinder Marrero MD - 04/09/[address] [place] [id number] EXAMINATION: CT CERVICAL SPINE WITHOUT CONTRAST INDICATION: [...] or traumatic malalignment. Referred By: Interpreted By: Narinedr Marrero MD, 04/09/2025 4:04 AM Broderick Torres MD CT Final Result from Last 3 Months Insurance [employer] Member Subscriber Plan / Payer ( fective 2017-Present) Name:Ranijth Momin Relation to Subscriber:Self Name:Ranjith Momin Payer ID:[id number] (NAIC) Type:Not on file Address: [place] [id number] [employer] Advance Directives Documents on File Type Date Recorded Patient Supervisor Airplane Flight Attendant Expl anation Advance Directives and Living Will 10/03/2017 SHORT FORM POWER OF ASSOCIATE DIRECTOR CAREER SERVICES Advance Directives and Living Will 10/03/2017 SHORT FORM POWER OF ASSOCIATE DIRECTOR CAREER SERVICES Advance Directives and Living Will 04/13/2016 SHORT FORM POWER OF ASSOCIATE DIRECTOR CAREER SERVICES Advance Directives and Living Will 04/13/2016 SHORT FORM POWER OF ASSOCIATE DIRECTOR CAREER SERVICES Advance Directives and Living Will 09/15/2015 SHORT FORM POWER OF ASSOCIATE DIRECTOR CAREER SERVICES Advance Directives and Living Will 09/15/2015 SHORT FORM POWER OF ASSOCIATE DIRECTOR CAREER SERVICES Advance Directives and Living Will 05/22/2015 SHORT FORM POWER OF ASSOCIATE DIRECTOR CAREER SERVICES Advance Directives and Living Will 05/22/2015 SHORT FORM POWER OF ASSOCIATE DIRECTOR CAREER SERVICES Care Teams Community Health Outreach Worker Relationship Specialty Start Date End Date Kenton Freeman MD [address] [place] [address] PCP - General INTERNAL MEDICINE 04/13/16 Radha Holliday ANP- [address] [place] [address] Nurse Practitioner NURSE PRACTITIONER ADULT HEALTH 01/23/24 Chase Rubio MD [address] [place] [address] Consulting Physician CLINICAL CARDIAC ELECTROPHYSIOLOGY 12/02/24 Raven Wallace PA-C [address] [place] [address] [phone] Referring Physician PHYSICIAN GARAGE HELPER 12/02/24
--- OUTSIDE RECORDS SUMMARY | 2025-05-18 23:53 | XMS_ITS | Encounter Summary ---
Author Organization [facility] Address [address] [place] [address] Care Team Providers Care Packaging Manager Name Role Phone Feliz Mai MD Primary Care Provider [phone] Cornelius Guevara MD Unavailable [phone] Vaibhav Burgess MD Unavailable [phone] Krish Contreras MD Unavailable [phone] Radha Holliday ANP-BC Unavailable [phone] Chase Rubio MD Unavailable [phone] Raven Wallace PA-C Unavailable [phone] Encounter Details Date Type Department Care Team (Late st Contact Info) Description 08/08/2021 Abstract [facility] [address] [place] [address] Cornelius Guevara MD [address] [place] [address] [phone] Social History Tobacco Use Types Packs/Day Years Used Date Smoking Tobacco: Former Cigarettes Q uit: 04/13/1990 Smokeless Tobacco: Current Chew Alcohol Use Standard Drinks/Week Comments No 0 (1 standard drink = 0.6 oz pur e alcohol) Sex and Gender Information Value Date Recorded Sex Assigned at Male 12/01/2024 10:06 AM INFORMATION SYSTEMS SUPERVISOR Legal Sex Male 1:26 AM CDT Gender Identity Not on file Sexual Orientation Not on file 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 Job 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 Not on file Not on file No t on file Not on file Not on file Not on file Not on file documented as of this encounter Plan of Treatment Upcoming Encounters Date Type Department Care Team (Late st Contact Info) Description 08/06/2025 3:15 AM INFORMATION SYSTEMS SUPERVISOR Allied Health/Nurse Visit [facility] [address] [place] [address] Chase Rubio MD [address] [place] [address] 01/06/2026 10:00 AM CDT Office Visit [facility] [address] [place] [address] Raven Wallace PA-C [address] [place], [place] [address] 01/06/2026 10:00 AM CDT Allied Health/Nurse Visit [facility] [place] [address] [place] [address] Chase Rubio MD [address] [place] [address] documented as of this encounter Procedures Procedure [...] on filedocumented in this encounter Care Teams Packaging Manager Relationship Specialty Start Date End Date Feliz Mai MD [address] [place] [address] PCP - General INTERNAL MEDICINE 04/13/16 Cornelius Guevara MD [address] [place], [place] [address] [place] Application Support Technician CARDIOVASCULAR DISEASE 09/12/17 01/22/24 Vaibhav Burgess MD [address] [place], [place] [phone] EP Application Support Technician CLINICAL CARDIAC ELECTROPHYSIOLOGY 11/14/19 01/22/24 Krish Contreras MD [address] [place] [phone] INTERVENTIONAL CARDIOLOGY 01/23/2412/05 Radha Holliday, [facility]- [address] [place] [address] Nurse Practitioner NURSE PRACTITIONER ADULT HEALTH 01/23/24 Chase Rubio MD [address] [place], [place] [address] Consulting Physician CLINICAL CARDIAC ELECTROPHYSIOLOGY 12/02/24 Raven Wallace PA-C [address] [place] [address] Referring Physician PHYSICIAN GENERAL EXPEDITOR 12/02/24 documented as of this encounter
== END 2025-05-18 23:10 | disposition left against medical advice (07) ==
LOC: ANHED 23:51
PROVIDERS: Emergency Provider Physician Assistant; PCP Internal Medicine
DX: L03.115 Cellulitis of right lower limb (principal); Z20.822 Contact with and (suspected) exposure to COVID-19; I48.91 Unspecified atrial fibrillation; J44.9 Chronic obstructive pulmonary disease, unspecified; E78.5 Hyperlipidemia, unspecified; G47.30 Sleep apnea, unspecified; Z95.0 Presence of cardiac pacemaker
CPT/HCPCS: 36415; 71046; 80053; 83605; 85025; 85610; 85652; 85730; 86140; 87637; 99283; A9270

== ENCOUNTER 2025-06-29 08:06 | Outpatient (CLI) | payer MEDICARE, SELFPAY ==
--- NOTE | ~2025-06-29 | US_ITS ---
EXAMINATION: US arterial ankle brachial ind DATE: 06/29/2025 09:10 INDICATION: Right lower limb swelling with cellulitis. Peripheral arterial occlusive disease. TECHNIQUE: Segmental pressures and plethysmographic and Doppler waveforms of the brachial and lower extremity arteries were obtained. COMPARISON: None. FINDINGS: Right and left brachial artery pressures of 120 mm Hg and 120 mm Hg, respectively, are concordant (normal difference <= 30 mmHg). The right ankle-brachial index (CHRIS) is unable to be obtained due to inability to occlude the right posterior tibial or dorsalis pedis arteries at the right ankle (normal >= 0.9-1.0). The right great toe-brachial index (TBI) is 0.59 (normal >= 0.65). Arterial Doppler waveforms are triphasic with brisk systolic upstrokes at both right posterior tibial and dorsalis pedis arteries. The left CHRIS is also unable to be obtained due to inability to occlude the vessels at the left ankle. The left TBI is 1.25. Arterial Doppler waveforms are triphasic with brisk systolic upstrokes at both left posterior tibial and dorsalis pedis arteries. IMPRESSION: 1. Mild arterial occlusive disease to the right lower limb with mildly decreased right TBI. 2. No significant arterial occlusive disease to the left lower limb with normal left TBI. Reviewed, dictated and finalized at location A. IMPRESSION: 1. Mild arterial occlusive disease to the right lower limb with mildly decrease d right TBI. 2. No significant arterial occlusive disease to the left lower limb with normal left TBI.
== END 2025-06-29 08:07 | disposition home or self-care (01) ==
PROVIDERS: PCP Internal Medicine; Visit Provider Internal Medicine
DX: R22.41 Localized swelling, mass and lump, right lower limb (principal); I73.9 Peripheral vascular disease, unspecified
CPT/HCPCS: 93922

== ENCOUNTER 2025-07-14 13:33 | Outpatient (CLI) | payer MEDICARE, SELFPAY ==
--- NOTE | ~2025-07-14 | XR_ITS ---
EXAMINATION: XR chest 2V, 07/14/2025 13:50 CDT HISTORY: Pneumonia, COPD, PACEMAKER X 10 YEARS COMPARISON: No comparisons available. Technique: 2 views obtained. Findings: COPD changes. Small basilar infiltrates. Moderate pulmonary venous congestion. No pneumothorax. Moderate cardiomegaly. Mediastinal and hilar contours are within normal limits. Bony thorax no acute abnormality. Left pacemaker. Impression: CHF Reviewed, dictated and finalized at location P. Impression: CHF
== END 2025-07-14 13:34 | disposition home or self-care (01) ==
PROVIDERS: PCP Internal Medicine; Visit Provider Internal Medicine
DX: J18.9 Pneumonia, unspecified organism (principal); J44.9 Chronic obstructive pulmonary disease, unspecified; I50.9 Heart failure, unspecified; Z95.0 Presence of cardiac pacemaker
CPT/HCPCS: 71046

== ENCOUNTER 2025-08-14 14:00 | Outpatient (CLI) | payer MEDICARE, SELFPAY ==
--- NOTE | ~2025-08-14 | CT_ITS ---
EXAMINATION:CT diagnostic chest wo con DATE: 08/14/2025 14:24 INDICATION: Chronic cough TECHNIQUE: Computed tomography (CT) of the chest was performed without intravenous contrast. The dose-length product (DLP) was 274.94 mGy-cm. COMPARISON: 01/17/2021 FINDINGS: Small to moderate right-sided pleural effusion with trace left-sided effusion and bibasilar multifocal consolidative and atelectatic appearing changes, right worse than left. Moderately severe cardiomegaly, increased since the previous exam. No large pericardial effusion or bulky lymphadenopathy. Central large airways are patent. Bones and upper abdomen appear grossly stable. IMPRESSION: Cardiomegaly with small to moderate right-sided pleural effusion, trace left-sided pleural effusion and multifocal areas of consolidation and atelectasis in the lower lobes right worse than left. Findings may represent combination of pneumonia/aspiration and sequelae of vascular congestion with pulmonary edema. COMMENT: These findings are new and should be followed radiographically until clear. Reviewed, dictated and finalized at location A. END TECHNICIAN IMPRESSION: Cardiomegaly with small to moderate right-sided pleural effusion, t race left-sided pleural effusion and multifocal areas of consolidation and atel ectasis in the lower lobes right worse than left. Findings may represent combin ation of pneumonia/aspiration and sequelae of vascular congestion with pulmonar y edema. COMMENT: These findings are new and should be followed radiographically until c lear.
== END 2025-08-14 14:01 | disposition home or self-care (01) ==
LOC: MICIMG 14:01
PROVIDERS: PCP Internal Medicine; Visit Provider Internal Medicine
DX: I51.7 Cardiomegaly (principal); J90 Pleural effusion, not elsewhere classified; J18.1 Lobar pneumonia, unspecified organism; J98.11 Atelectasis
CPT/HCPCS: 71250